=== PATIENT | male | born 1970 | race Caucasian/White ===

== ENCOUNTER → 2023-07-29 23:00 | Outpatient (CLI) | payer BC, SELFPAY | PROVIDERS: PCP Nurse Practitioner Family; Visit Provider Nurse Practitioner Family | DX: I10 Essential (primary) hypertension (principal); F41.9 Anxiety disorder, unspecified; E11.9 Type 2 diabetes mellitus without complications; E78.5 Hyperlipidemia, unspecified | CPT/HCPCS: 80053; 80061; 83036; 84436; 84439; 84443; 84479; 85025 ==

== ENCOUNTER → 2023-08-05 23:35 | Outpatient (CLI) | payer BC, SELFPAY ==
[2023-08-05 17:29] LABS: Creatinine,Urine Random 165 mg/dL (Not Estab.)
[2023-08-05 17:34] LABS: Microalbumin/Creatinine Ratio 30.9
== END ==
PROVIDERS: PCP Nurse Practitioner Family; Visit Provider Nurse Practitioner Family
DX: E11.9 Type 2 diabetes mellitus without complications (principal); Z79.84 Long term (current) use of oral hypoglycemic drugs
CPT/HCPCS: 82043; 82570

== ENCOUNTER 2023-12-09 11:06 | Outpatient (CLI) | payer BC, SELFPAY ==
[2023-12-09 16:39] LABS: Basophils # 0.1 K/mm3 (0-0.2); Basophils % 0.7 % (0.1-2.0); Eosinophils # 0.2 K/mm3 (0.0-0.4); Eosinophils % 1.9 % (0.1-12.0); Hematocrit 51.4 % (42.0-52.0); Hemoglobin 16.6 g/dL (14.1-18.0); Lymphocytes # 2.5 K/mm3 (0.7-4.5); Lymphocytes % 26.4 % (10-50); Mean Corpuscular HGB Conc 32.2 g/dL (31.8-35.4); Mean Corpuscular Hemoglobin 31.8 pg (27.0-31.2); Mean Corpuscular Volume 98.9 fl (80-94); Mean Platelet Volume 9.7 fl (7.4-10.4); Monocytes # 0.5 K/mm3 (0.1-1.0); Monocytes % 5.1 % (1.7-9.3); Neutrophils # 6.2 K/mm3 (1.8-7.8); Neutrophils % 65.9 % (37.0-80.0); Platelet Count 184 K/mm3 (142-424); White Blood Count 9.4 K/mm3 (4.8-10.8)
[2023-12-09 17:04] LABS: Chloride 104 mmol/L (98-107); Sodium 138 mmol/L (136-145)
[2023-12-09 17:05] LABS: Potassium 4.5 mmoL/L (3.5-5.1)
[2023-12-09 17:07] LABS: Alanine Aminotransferase 43 U/L (12-78); Albumin Level 4.3 g/dl (3.5-5.0); Albumin/Globulin Ratio 1.7 (1.1-1.8); Alkaline Phosphatase 72 U/L (38-126); Anion Gap 12.5 mEq/L (5-15); Aspartate Amino Transferase 35 U/L (17-59); Bilirubin,Total 0.5 mg/dl (0.2-1.3); Blood Urea Nitrogen 18 mg/dl (9-20); Carbon Dioxide 26 mmol/L (22.0-30.0); Cholesterol 171 mg/dl (140-200); Estimated Glomerular Filt Rate 142 ml/min (>60); GFR (African American) 172 ML/MIN (>60); Globulin 2.5 g/dL (1.3-3.2); Total Protein,Serum 6.8 g/dl (6.3-8.2); Triglycerides 353 mg/dl (30-150); VLDL Cholesterol 71 mg/dL (0-40)
[2023-12-09 17:08] LABS: Calcium 9.5 mg/dl (8.4-10.2); Chol/HDL Ratio 4.6 (1-3.5); Glucose 185 mg/dl (74-100); HDL Cholesterol 37 mg/dl (40-60)
[2023-12-09 17:19] LABS: Direct LDL Cholesterol 82.91 mg/dL (100-129)
[2023-12-09 17:27] LABS: Hemoglobin A1C 7.2 % (4.0-6.0)
== END 2023-12-09 23:59 | disposition home or self-care (01) ==
LOC: LAB.DROPOF 12-10 11:07
PROVIDERS: PCP Nurse Practitioner Family; Visit Provider Nurse Practitioner Family
DX: E11.9 Type 2 diabetes mellitus without complications (principal); E78.5 Hyperlipidemia, unspecified; Z79.84 Long term (current) use of oral hypoglycemic drugs
CPT/HCPCS: 80053; 80061; 83036; 85025

== ENCOUNTER 2024-04-20 11:30 | Outpatient (CLI) | payer BC, SELFPAY ==
[2024-04-20 18:29] LABS: Basophils # 0.1 K/mm3 (0-0.2); Basophils % 0.8 % (0.1-2.0); Eosinophils # 0.2 K/mm3 (0.0-0.4); Eosinophils % 1.6 % (0.1-12.0); Hematocrit 45.5 % (42.0-52.0); Hemoglobin 16.8 g/dL (14.1-18.0); Lymphocytes # 2.9 K/mm3 (0.7-4.5); Lymphocytes % 23.8 % (10-50); Mean Corpuscular HGB Conc 36.9 g/dL (31.8-35.4); Mean Corpuscular Hemoglobin 36.1 pg (27.0-31.2); Mean Corpuscular Volume 97.7 fl (80-94); Monocytes # 0.7 K/mm3 (0.1-1.0); Monocytes % 5.6 % (1.7-9.3); Neutrophils # 8.4 K/mm3 (1.8-7.8); Neutrophils % 68.2 % (37.0-80.0); Platelet Count 217 K/mm3 (142-424); Red Blood Count 4.66 M/mm3 (4.60-6.20); Red Cell Distribution Width 13.6 % (11.5-17.5); White Blood Count 12.3 K/mm3 (4.8-10.8)
[2024-04-20 19:44] LABS: Alanine Aminotransferase 41 U/L (12-78); Albumin Level 4.3 g/dl (3.5-5.0); Albumin/Globulin Ratio 1.5 (1.1-1.8); Alkaline Phosphatase 63 U/L (38-126); Anion Gap 12.7 mEq/L (5-15); Aspartate Amino Transferase 31 U/L (17-59); Bilirubin,Total 0.7 mg/dl (0.2-1.3); Blood Urea Nitrogen 16 mg/dl (9-20); Calcium 9.6 mg/dl (8.4-10.2); Carbon Dioxide 25 mmol/L (22.0-30.0); Chloride 102 mmol/L (98-107); Chol/HDL Ratio 5.1 (1-3.5); Cholesterol 174 mg/dl (140-200); Estimated Glomerular Filt Rate 118 ml/min (>60); GFR (African American) 143 ML/MIN (>60); Globulin 2.8 g/dL (1.3-3.2); Glucose 126 mg/dl (74-100); HDL Cholesterol 34 mg/dl (40-60); Potassium 4.7 mmoL/L (3.5-5.1); Sodium 135 mmol/L (136-145); Total Protein,Serum 7.1 g/dl (6.3-8.2); Triglycerides 283 mg/dl (30-150); VLDL Cholesterol 57 mg/dL (0-40)
[2024-04-21 01:37] LABS: Hemoglobin A1C 6.3 % (4.0-6.0)
== END 2024-04-20 23:59 | disposition home or self-care (01) ==
LOC: LAB.DROPOF 04-21 12:24
PROVIDERS: PCP Nurse Practitioner Family; Visit Provider Nurse Practitioner Family
DX: I10 Essential (primary) hypertension (principal); E11.9 Type 2 diabetes mellitus without complications; Z79.84 Long term (current) use of oral hypoglycemic drugs; Z79.85 Long-term (current) use of injectable non-insulin antidiabetic drugs; Z72.0 Tobacco use
CPT/HCPCS: 80053; 80061; 83036; 85025

== ENCOUNTER 2025-03-01 13:30 | Outpatient (CLI) | payer BC, SELFPAY ==
[2025-03-01 17:23] LABS: Hematocrit 49.6 % (42.0-52.0); Hemoglobin 16.9 g/dL (14.1-18.0); Immature Granulocytes % 0.5 %; Mean Corpuscular HGB Conc 34.1 g/dL (31.8-35.4); Mean Corpuscular Hemoglobin 30.8 pg (27.0-31.2); Mean Corpuscular Volume 90.3 fl (80-94); Nucleated Red Blood Cells % 0 %; Platelet Count 204 K/mm3 (142-424); Red Blood Count 5.49 M/mm3 (4.60-6.20); Red Cell Distribution Width-SD 41.1 fL; White Blood Count 15.3 K/mm3 (4.8-10.8)
[2025-03-01 18:21] LABS: Alanine Aminotransferase 34 U/L (12-78); Albumin Level 5.1 g/dl (3.5-5.0); Albumin/Globulin Ratio 1.8 (1.1-1.8); Alkaline Phosphatase 69 U/L (38-126); Anion Gap 21.3 mEq/L (5-15); Aspartate Amino Transferase 39 U/L (17-59); Bilirubin,Total 0.6 mg/dl (0.2-1.3); Blood Urea Nitrogen 15 mg/dl (9-20); Calcium 8.7 mg/dl (8.4-10.2); Carbon Dioxide 23 mmol/L (22.0-30.0); Chloride 96 mmol/L (98-107); Cholesterol 164 mg/dl (140-200); Creatinine,Serum 0.70 mg/dl (0.66-1.25); Estimated Glomerular Filt Rate 118 ml/min (>60); GFR (African American) 143 ML/MIN (>60); Globulin 2.9 g/dL (1.3-3.2); Glucose 61 mg/dl (74-100); HDL Cholesterol 34 mg/dl (40-60); Potassium 4.3 mmoL/L (3.5-5.1); Sodium 136 mmol/L (136-145); Total Protein,Serum 8.0 g/dl (6.3-8.2); Triglycerides 241 mg/dl (30-150)
[2025-03-01 18:38] LABS: T4 (Thyroxine) 11.2 ug/dl (5.53-11.0)
[2025-03-01 18:51] LABS: Thyroid Stimulating Hormone 1.43 uIU/mL (0.465-4.68)
[2025-03-01 19:04] LABS: Hepatitis C Ab Qual. W/ RFX NEGATIVE (Negative)
[2025-03-01 19:31] LABS: 25-OH Vitamin D, Total 25.0 ng/mL (30-100)
--- OUTSIDE RECORDS SUMMARY | 2025-03-02 09:55 | XMS_ITS | Encounter Summary ---
Author Organization [facility] Address [address] [place] [address] Care Team Providers Care White Shoe Ragger Name Role Phone Alfredo Eboni MENDEL Primary Care Provider [phone] Lawrence Baker MD Unavailable Unavailable Dave Gongora MD Unavailable [phone] Reason for Visit * Reason Onset Date Comments Other 11/30/2021 Wanting to get s cheduled Encounter Details Date Type Department Care Team (Late st Contact Info) Description 11/30/2021 Telephone [facility] [address] [place] [address], [address] [place] [address] Evans Gamino MD [address] [place] [address] [address] [place] [address] Other (Wanting to get scheduled) Social History Tobacco Use Types Packs/Day Years Used Date Smoking Tobacco: Every Day Cigarettes 1.5 25 Smokeless Tobacco: Current Comments: I'm trying to cut back. Alcohol Use Standard Drinks/Week Comments Not Currently 0 (1 standard drink = 0.6 oz pur e alcohol) Sex and Gender Information Value Date Recorded Sex Assigned at Male 12/24/2021 9:28 PM EDT Legal Sex Male 11:59 AM EDT Gender Identity Male 12/24/2021 9:28 PM EDT Sexual Orientation Straight 12/24/2021 9: 28 PM EDT COVID-19 Exposure Response Date Recorded In the last month, have you been in contact with someone who was confirmed or suspected to have Coronavirus / COVID-19? No / Unsure 11/03/2021 10:23 AM EST documented as of this encounter Miscellaneous Notes * Telephone Encounter - Bob Caceres - 11/30/2021 4:13 PM EDT PT's called in wanting to the PT scheduled back with Evans Gamino. Would like a call back to schedule as soon as possible. documented in this encounter Plan of Treatment Not on file documented as of this encounter Visit Diagnoses Not on filedocumented in this encounter Additional Health Concerns Infection Onset Date Last Indicated Resolved Time Covid-19 (rule out) 12/30/2021 12/30/2021 01/01/20 5:52 AM EDT Assessment Noted Time PHQ-9 Depression Total Score: 15 020 6:45 PM EDT documented as of this encounter Care Teams White Shoe Ragger Relationship Specialty Start Date End Date Eboni Fuentes PA-C [address] [place] [address] PCP - General Physician Medical Massage Therapist 07/19/20 Lawrence Baker MD [address] [place] [address] Pulmonary Disease 12/25/21 04/22/22 Dave Gongora MD [address] [address] Surgery 12/25/21 documented as of this encounter
--- OUTSIDE RECORDS SUMMARY | 2025-03-02 09:55 | XMS_ITS | Clinical Summary ---
Author Organization [facility] Address [address] [place] [address] Care Team Providers Care Interpreter Translator Name Role Phone Eboni Fuentes PA-C Primary Care Provider [phone] Dave Gongora MD Unavailable [phone] Allergies No known active allergies Medications BUPRENORPHINE HCL/NALOXONE HCL (SUBOXONE SL) Take 16 mg sublingually Once Daily. USUAL DOSE 8 MG, INCREASED TO 16 FOR SURGERY Active flaxseed oil Oil Daily. Act mirta Lancets MiscIndications:Ty pe 2 diabetes mellitus with hyperglycemia, without long-term current use of insulin (HCC) 1 Device Three times a day. 100 Each 3 07/25/20 20 Active testosterone cypionate 200 mg/mL Kit Administer 100 mg intramuscularly. Every 2 weeks Active diclofenac sodium (VOLTAREN) 1 % topical gelIndications:Mus sada spasm,Thoracic myofascial strain, initial encounter 2 g by Topical route Four times a day. 1 Each 1 10/29/19 22 Active ergocalciferol (VITAMIN D2) 50,000 unit CAPSULEIndications :Vitamin D deficiency Take 1 Capsule by mouth Every week. 4 Capsule 3 11/07/19 22 Active polyethylene glycol 3350 (MIRALAX) 17 gram packetIndications: Constipation Take 17 g by mouth Once Daily. Dispense 1 bottle 1 g 05/24/20 22 Active rosuvastatin (CRESTOR) 10 mg tabletIndications: Other hyperlipidemia Take 1 Tablet by mouth At bedtime. 30 Tablet 5 12/01/19 23 Active lisinopriL-hydroch lorothiazide (ZESTORETIC) 20-12.5 mg per tabletIndications: Essential hypertension Take 1 Tablet by mouth Once Daily. 30 Tablet 12/01/19 23 Active pioglitazone (ACTOS) 30 mg tabletIndications: Diabetes mellitus without complication (HCC) Take 1 Tablet by mouth Once Daily. 30 Tablet 12/01/19 23 Active famotidine (PEPCID) 20 mg tabletIndications: Gastroesophageal reflux disease without esophagitis Take 1 Tablet by mouth Once Daily. 30 Tablet 12/01/19 23 Active ibuprofen (MOTRIN) 800 mg tabletIndications: Acute pain of left shoulder Take 1 Tablet by mouth EVERY 6 TO 8 HOURS PRN for Pain. 90 Tablet 12/01/19 23 Active sildenafiL (VIAGRA) 100 mg tabletIndications: Drug-induced erectile dysfunction Take 1 Tablet by mouth As directed. 15 Tablet 12/01/19 23 Active omeprazole (PRILOSEC) [address] capsuleIndications :Gastroesophageal reflux disease without esophagitis TAKE 1 CAPSULE BY MOUTH EVERY DAY 90 Capsule 01/08/20 23 Active lamoTRIgine (LAMICTAL) 100 mgIndications:Irri tability,Anxiety Take 1 Tablet by mouth Twice a day. 30 Tablet 03/18/20 23 Active ondansetron HCL (ZOFRAN) 4 mg tabletIndications: Nausea TAKE 1 TABLET BY MOUTH THREE TIMES DAILY NEEDED FOR NAUSEA 90 Tablet 12/10/19 24 Active Active Problems Problem Noted Date Diagnosed Date Adrenal abnormality/ LT adrenal nodularity . 09/2021 Abdominal pain, generalized 12/18/2021 Incarcerated incisional hernia 12/18/2021 Uncontrolled type 2 diabetes mellitus with hyper glycemia 09/26/2020 Essential hypertension 09/26/2020 Mixed hyperlipidemia 09/26/2020 Epidermoid cyst 07/22/2019 Overview (07/22/2019): Added automatically from request for surgery [id number] Encounters Date Type Department Care Team Description 02/11/2025 Telephone Patient Access Center [address] [place] [address] Eboni Fuentes PA-C Preventative Care (COLOGUARD) from Last 3 Months Family History Medical History Relation Name Comments Cancer Father Emphysema Father Arthritis-Osteo Mother Kidney Disease Mother Relation Name Status Comments Father Mother Alive Social History Tobacco Use Types Packs/Day Years Used Date Smoking Tobacco: Every Day Cigarettes 1 25 Smokeless Tobacco: Current Tobacco Cessation:Ready to Q uit: No; Counseling Given: Not Answered Comments:12/25/21 smokes 1 ppd Alcohol Use Standard Drinks/Week Comments Not Currently 0 (1 standard drink = 0.6 oz pur e alcohol) PHQ-2 Answer Date Recorded PHQ-2 SCORE 0 11/30/2022 Sex and Gender Information Value Date Recorded Sex Assigned at Male 12/24/2021 9:28 PM EDT Legal Sex Male 11:59 AM EDT Gender Identity Male 12/24/2021 9:28 PM EDT Sexual Orientation Straight 12/24/2021 9: 28 PM EDT Last Filed Vital Signs Vital Sign Reading Time Taken Comments Blood Pressure 152/84 11/30/2022 9:26 AM EDT Pulse 99 11/30/2022 9:26 AM EDT Temperature 36.6 C (97.9 F) 11/30/2022 9:26 AM EDT Respiratory Rate 16 11/30/2022 9:26 AM EDT Oxygen Saturation 98% 11/30/2022 9:26 AM EDT Inhaled Oxygen Concentration - - Weight 118.8 kg (262 lb) 11/30/2022 9:26 AM EDT Height 177.8 cm (5' 10 ) 11/30/2022 9:26 AM EDT Body Mass Index 37.59 11/30/2022 9:26 AM EDT Plan of Treatment Health Maintenance Due Date Last Done Comments COLONOSCOPY 1972 FIT 1972 HEP C SCREENING 1972 SIGMOIDOSCOPY 1972 DTAP/TDAP/TD VACCINE (1 - Tdap) 12/31/1990 ANNUAL DIABETIC EYE EXAM 09/21/2021 021 (Previously completed) Shingles Vaccine (Shingrix) (1 of 2) 12/31/2021 ANNUAL DIABETIC URINE MICROALBUMIN 11/01/2022 11/01/2021 ANNUAL WELLNESS EXAM 12/02/2023 11/30/2022, 11/30/2022, 07/12/2020, Additional history exists COLOGUARD 11/10/2024 11/10/2021 Colorectal Screening Combination 11/10/2024 INFLUENZA VACCINE (#1) 2025 04/08/2014 HEP A VACCINE Aged Out 08/30/2010, 06/27, 05/16/2009 No longer eligible based on patient's age to complete this topic HIB VACCINE Aged Out No longer eligi ble based on patient's age to complete this topic ROTOVIRUS VACCINE Aged Out No longer eligible based on patient's age to complete this topic Medical Devices Implanted Type Area Cook Night Device Identifier Shelf Expiration Date Model / Serial / Lot Mesh Ventralight W/Positioner 4.5 [place] Implanted:Qty: 1 on 01/02/2022 by Dave Gongora MD at [facility] N/A: Abdomen BARD PATIENT CARE 07/23/2023 [id number] / / [id number] Optifix Absorbable Fixation Sy Implanted:Qty: 1 on 01/02/2022 by Dave Gongora MD at [facility] N/A: Abdomen C R BARD 06/22/2023 [id number] / / [id number] Procedures Procedure Name Priority Date/Time Associated Diagnosis Comments COLOGUARD Routine 11/10/2021 4:35 PM EDT Screening for colorectal cancer MICROALBUMIN,RANDOM URINE (INCLUDES CREATININE W/RATIO) Routine 11/01/2021 11:35 AM EST Type 2 diab w hyprosm w/o nonket hyprgly-hypros coma ([facility]) from Last 3 Months or Most Recently Relevant to Health Maintenance Results * Cologuard (11/10/2021 4:35 PM EDT) Cologuard Negative Negative 11/15/2021 5:43 PM EDT [employer] (CLIA #:[id number]) Comment: NEGATIVE TEST RESULT. A negative Cologuard result indicates a low likelihood that a colorectal cancer (CRC) or advanced adenoma (adenomatous polyps with more advanced pre-malignant features) is present. The chance that a person with a negative Cologuard test has a colorectal cancer is less than 1 in 1500 (negative predictive value >99.9%) or has an advanced adenoma is less than 5.3% (negative predictive value 94.7%). These data are based on a prospective cross-sectional study of 10,000 individuals at average risk for colorectal cancer who were screened with both Cologuard and colonoscopy. (Maria Elena Cespedes al, N Engl J Med 2014;370(14):4369-3433) The normal value (reference range) for this assay is negative. COLOGUARD RE-SCREENING RECOMMENDATION: Periodic colorectal cancer screening is an important part of preventive healthcare for asymptomatic individuals at average risk for colorectal cancer. Following a negative Cologuard result, the [place] [employer] Society and U.S. Multi-Society Task Force screening guidelines recommend a Cologuard re-screening interval of 3 years. References: [place] [employer] Guideline for Colorectal Cancer Screening: https://www.cancer.org/cancer/wxria-azynis-spcxav/quqcwffuc-baiqipofv-luvjdij/ac s-rec ommendations.html.; Zechariah DK, Alexandra WEST, Pablo PickensK, Colorectal Cancer Screening: Recommendations for Physicians and Patients from the U.S. Multi-Society Task Force on Colorectal Cancer Screening , Am J Gastroenterology 2017; 112:2203-4123. TEST DESCRIPTION: Composite algorithmic analysis of stool DNA-biomarkers with hemoglobin immunoassay. Quantitative values of individual biomarkers are not reportable and are not associated with individual biomarker result reference ranges. Cologuard is intended for colorectal cancer screening of adults of either sex, 45 years or older, who are at average-risk for colorectal cancer (CRC). Cologuard has been approved for use by the U.S. FDA. The performance of Cologuard was established in a cross sectional study of average-risk adults aged 50-84. Cologuard performance in patients ages 45 to 49 years was estimated by sub-group analysis of near-age groups. Colonoscopies performed for a positive result may find as the most clinically significant lesion: colorectal cancer [4.0%], advanced adenoma (including sessile serrated polyps greater than or equal to 1cm diameter) [20%] or non- advanced adenoma [31%]; or no colorectal neoplasia [45%]. These estimates are derived from a prospective cross-sectional screening study of 10,000 individuals at average risk for colorectal cancer who were screened with both Cologuard and colonoscopy. (Maria Elena Grimes, N Engl J Med 2014;370(14):1429-7213.) Cologuard may produce a false negative or false positive result (no colorectal cancer or precancerous polyp present at colonoscopy follow up). A negative Cologuard test result does not guarantee the absence of CRC or advanced adenoma (pre-cancer). The current Cologuard screening interval is every 3 years. ([place] [employer] Society and U.S. Multi-Society Task Force). Cologuard performance data in a 10,000 patient pivotal study using colonoscopy as the reference method can be accessed at the following location: www.[employer]/results. Additional description of the Cologuard test process, warnings and precautions can be found at www.cologuard.com. Stool 11/10/2021 4:35 PM EDT 11/13/2021 2:16 PM EDT Elsa Martinez APRN LAB SEND OUT ORDERABLES Final Re sult Performing Organization Address [facility] Co de Phone Number [employer] (CLIA #:[id number]) [address] [phone] * Microalbumin, Random Urine (11/01/2021 11:35 AM EST) CREATININE URINE 100.0 mg/dL 11/02/19 4:12 PM EST [facility] MICROALBUMIN,U,RANDO M 1.40 0.00 - 1.80 mg/dL 11/01/2021 4:12 PM EST [facility] MICROALB CREAT RATIO 14.0 ug/mg 04/2022 4:12 PM EST [facility] Comment: CATEGORY SPOT COLLECTION Normal <30 ug/mg creatinine Microalbuminuria 30-300 ug/mg creatinine Clinical albuminuria >300 ug/mg creatinine 11/01/2021 11:3 5 AM EST 11/01/2021 3:44 PM EST Narrative [facility] - 11/01/2021 4:12 PM EST NO KNOWN ALLERGIES Elsa Martinez APRN CHEMISTRY ORDERABLES Final Resul t Performing Organization Address [facility] Co de Phone Number [facility] [address] [place], [place] [address] [place] [address] LAB [address] [facility] [place] [address] from Last 3 Months or Most Recently Relevant to Health Maintenance Insurance [facility] [place] [id number] [facility] Advance Directives * Full Code (Latest Code Status on File) Date Activated Date Inactivated Comments 01/02/2022 7:33 AM 01/02/2022 3:14 PM Care Teams Interpreter Translator Relationship Specialty Start Date End Date Eboni Fuentes PA-C [address] [place] [address] PCP - General Physician Certified Pesticide Applicator 07/19/20 Dave Gongora MD [address] [place] [address] Surgery 12/25/21
--- OUTSIDE RECORDS SUMMARY | 2025-03-02 09:55 | XMS_ITS | Encounter Summary ---
Author Organization [facility] Address [address] [place] [address] Care Team Providers Care Fish Hatchery Worker Name Role Phone Amelie Torres DO, Clarence Franklin Primary Care Pr ovider Eboni Fuentes PA-C Primary Care Provider [phone] Lawrence Baker MD Unavailable Unavailable Dave Gongora MD Unavailable [phone] Reason for Visit * Reason Onset Date Comments Results - Test 06/12/2019 Encounter Details Date Type Department Care Team (Late st Contact Info) Description 06/12/2019 Telephone Patient Access Center [address] [place] [address] Doctor, [place], [place] Results - Test Social History Tobacco Use Types Packs/Day Years Used Date Smoking Tobacco: Every Day Smokeless Tobacco: Former Sex and Gender Information Value Date Recorded Sex Assigned at Male 12/24/2021 9:28 PM EDT Legal Sex Male 11:59 AM EDT Gender Identity Male 12/24/2021 9:28 PM EDT Sexual Orientation Straight 12/24/2021 9: 28 PM EDT documented as of this encounter Miscellaneous Notes * Telephone Encounter - Rosemarie Vance - 06/12/2019 3:11 PM EDT Nilesh Mack, phoned in requesting test result(s). 06/11/2019 result(s) shared with patient. Recommendations and education provided related to test result(s), he voiced understanding. No additionalquestions or concerns at this time. * Telephone Encounter - Rosemarie Vance - 06/12/2019 3:10 PM EDT ----- Message from Danikaeduar Kimjuliana sent at 06/12/2019 2:49 PM EDT ----- Regarding: Lab results Lab results documented in this encounter Plan of Treatment Not on file documented as of this encounter Visit Diagnoses Not on filedocumented in this encounter Additional Health Concerns Infection Onset Date Last Indicated Resolved Time Covid-19 (rule out) 06/16/2021 06/16/2021 06/16/20 21 4:31 PM EDT Covid-19 (rule out) 08/14/2021 12/30/2021 08/28/19 22 10:12 PM EST Covid-19 (rule out) 12/30/2021 12/30/2021 01/01/20 5:52 AM EDT documented as of this encounter Care Teams Fish Hatchery Worker Relationship Specialty Start Date End Date Hector Kinsey Jr., DO [address] [place] [address] PCP - General Family Medicine 09/21/19 07/18/20 Eboni Fuentes PA-C [address] [place] [address] PCP - General Physician Chemists 07/19/20 Lawrence Baker MD [address] [place] [address] Pulmonary Disease 12/25/21 04/22/22 Dave Gongora MD [address] [address] Surgery 12/25/21 documented as of this encounter
--- OUTSIDE RECORDS SUMMARY | 2025-03-02 09:55 | XMS_ITS | Encounter Summary ---
Author Organization [facility] Address [address] [place] [address] Care Team Providers Care Shank Cutter Name Role Phone Eboni Fuentes PA-C Primary Care Provider [phone] Lawrence Baker MD Unavailable Unavailable Dave Gongora MD Unavailable [phone] Reason for Visit * Reason Onset Date Comments Other 01/25/2021 Encounter Details Date Type Department Care Team (Late st Contact Info) Description 01/25/2021 Telephone [facility] [address] [place] [address] Eboni Fuentes PA-C [address] [place] [address] Other Social History Tobacco Use Types Packs/Day Years Used Date Smoking Tobacco: Every Day Cigarettes 1.5 25 Smokeless Tobacco: Former Comments: I'm trying to cut back. Alcohol [...] encounter Miscellaneous Notes * Telephone Encounter - Flaco Barros - 01/25/2021 1:00 PM EDT Occupational Medicine called to check on the status of the patient's DOT paperwork. I informed her that it has been faxed and that Eboni is out. She still wanted me to put in a message to have it faxed back over. documented in this encounter Plan of Treatment Not on file documented as of this encounter Visit Diagnoses Not on filedocumented in this encounter Additional Health Concerns Infection Onset Date Last Indicated Resolved Time Covid-19 (rule out) 06/16/2021 06/16/2021 06/16/20 21 4:31 PM EDT Covid-19 (rule out) 08/14/2021 12/30/2021 08/28/19 22 10:12 PM EST Covid-19 (rule out) 12/30/2021 12/30/2021 01/01/20 22 5:52 AM EDT Assessment Noted Time PHQ-9 Depression Total Score: 15 020 6:45 PM EDT documented as of this encounter Care Teams Shank Cutter Relationship Specialty Start Date End Date Eboni Fuentes PA-C [address] [place] [address] PCP - General Physician Scholarship Counselor 07/19/20 Lawrence Baker MD [address] [place] [address] Pulmonary Disease 12/25/21 04/22/22 Dave Gongora MD [address] [place] [address] Surgery 12/25/21 documented as of this encounter
--- OUTSIDE RECORDS SUMMARY | 2025-03-02 09:55 | XMS_ITS | Encounter Summary ---
Author Organization [facility] Address [address] [place] [address] Care Team Providers Care Biomedical Repair Technician Name Role Phone EnidEboni alfaro MENDEL Primary Care Provider [phone] Lawrence Baker MD Unavailable Unavailable Dave Gongora MD Unavailable [phone] Encounter Details Date Type Department Care Team (Late st Contact Info) Description 09/28/2020 Refill [facility] [address] [place] [phone] Ginger Curtis MD [address] [place] [address] Diabetes mellitus without complication (Primary Dx) Social History Tobacco Use Types Packs/Day Years Used Date Smoking Tobacco: Every Day Cigarettes 1.5 25 Smokeless Tobacco: Former Alcohol Use Standard Drinks/Week Comments Not Currently [...] have Coronavirus / COVID-19? No / Unsure 09/26/2020 2:25 PM EST documented as of this encounter Miscellaneous Notes * Telephone Encounter - Dana Mars MA - 09/28/2020 11:16 AM EST Images from the original note were not included. Ginger Curtis MD James, [place], [place] Caller: Unspecified (Today, ??9:42 AM) ?? Will d/c Metformin. Start Actos 30 mg daily. May send in prescriptions. Called pt, no answer, left above message. * Telephone Encounter - Dana Mars MA - 09/28/2020 9:42 AM EST Patient calls and states he seen dr Curtis on Saturday. He states he was started on Metformin 500 mg bid. It is causing severe diarrhea with stomach cramps. He has no drug allergies. 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 Please advise [phone]. Call in to [facility]. documented in this encounter Plan of Treatment Not on file documented as of this encounter Visit Diagnoses Diagnosis Diabetes mellitus without complication (HCC)- Primary Type II or unspecified type diabetes mellitus without mention of complication, not stated as uncontrolled documented in this encounter Additional Health Concerns Infection Onset Date Last Indicated Resolved Time Covid-19 (rule out) 06/16/2021 06/16/2021 06/16/20 21 4:31 PM EDT Covid-19 (rule out) 08/14/2021 12/30/2021 08/28/19 22 10:12 PM EST Covid-19 (rule out) 12/30/2021 12/30/2021 01/01/20 22 5:52 AM EDT Assessment Noted Time PHQ-9 Depression Total Score: 15 020 6:45 PM EDT documented as of this encounter Care Teams Biomedical Repair Technician Relationship Specialty Start Date End Date Eboni Fuentes PA-C [address] [place] [address] PCP - General Physician Customs Officer 07/19/20 Lawrence Baker MD [address] [place] [address] Pulmonary Disease 12/25/21 04/22/22 Dave Gongora MD [address], [place] [address] Surgery 12/25/21 documented as of this encounter
--- OUTSIDE RECORDS SUMMARY | 2025-03-02 09:55 | XMS_ITS | Encounter Summary ---
Author Organization [facility] Address [address] [place] [address] Care Team Providers Care Plaster Machine Operator Name Role Phone Eboni Fuentes PA-C Primary Care Provider [phone] Dave Gongora MD Unavailable [phone] Reason for Visit * Reason Onset Date Comments Other 05/25/2022 information Encounter Details Date Type Department Care Team (Late st Contact Info) Description 05/25/2022 Telephone [facility] [address] [facility] [place] [address] Eboni Fuentes PA-C [address] [place] [address] Other (information) Social History Tobacco Use Types Packs/Day Years Used Date Smoking Tobacco: Every Day Cigarettes 1 25 Smokeless Tobacco: Current Comments:12/25/21 smokes 1 ppd Alcohol Use Standard [...] Exposure Response Date Recorded In the last 10 days, have yo u been in contact with someone who was confirmed or suspected to have Coronavirus/COVID-19? 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 The was the first day he didn't work. Please give call back to discuss. Thank you. documented in this encounter Plan of Treatment Not on file documented as of this encounter Visit Diagnoses Not on filedocumented in this encounter Additional Health Concerns Assessment Noted Time PHQ-9 Depression Total Score: 15 020 6:45 PM EDT documented as of this encounter Care Teams Plaster Machine Operator Relationship Specialty Start Date End Date Eboni Fuentes PA-C [address] [place] [address] PCP - General Physician Blow Down Operator 07/19/20 Dave Gongora MD [address] [place] [address] Surgery 12/25/21 documented as of this encounter
--- OUTSIDE RECORDS SUMMARY | 2025-03-02 09:55 | XMS_ITS | Encounter Summary ---
Author Organization [facility] Address [address] [id number] Care Team Providers Care Band Lining Bander Name Role Phone Amelie Torres DO, Clarence Franklin Primary Care Pr ovider Eboni Fuentes PA-C Primary Care Provider [phone] Lawrence Baker MD Unavailable Unavailable Dave Gongora MD Unavailable [phone] Reason for Visit * Reason Onset Date Comments Results 06/16/2020 Covid Encounter Details Date Type Department Care Team (Late st Contact Info) Description 06/16/2020 Telephone Patient Access Center [address] [place] [address] Harjit Rivera RN Results (Covid) Social History Tobacco Use Types Packs/Day Years [...] have Coronavirus / COVID-19? No / Unsure 06/13/2020 12:21 PM EDT documented as of this encounter Miscellaneous Notes * Telephone Encounter - Harjit Rivera RN - 06/16/2020 2:11 PM EDT Patient notified of negative COVID 19 results. Patient voiced understanding. documented in this encounter Plan of Treatment [...] documented as of this encounter Care Teams Band Lining Bander Relationship Specialty Start Date End Date Hector Kinsey Jr., DO [address] [place] [address] PCP - General Family Medicine 09/21/19 07/18/20 Eboni Fuentes PA-C [address] [place] [address] PCP - General Physician Project Specialist 07/19/20 Lawrence Baker MD [address] [place] [address] Pulmonary Disease 12/25/21 04/22/22 Dave Gongora MD [address] [address] Surgery 12/25/21 documented as of this encounter
--- OUTSIDE RECORDS SUMMARY | 2025-03-02 09:55 | XMS_ITS | Encounter Summary ---
Author Organization [facility] Address [address] [place] [address] Care Team Providers Care Study Abroad Coordinator Name Role Phone Enidangelina Eboni MENDEL Primary Care Provider [phone] Lawrence Baker MD Unavailable Unavailable Dave Gongora MD Unavailable [phone] Encounter Details Date Type Department Care Team (Late st Contact Info) Description 05/06/2021 Orders Only [facility] [address] [place] [address] Sara Hearn, ASSISTANT PROFESSOR OF DRAMA [address] [place] [address] Cough with exposure to COVID-19 virus (Primary Dx) Social History Tobacco Use Types [...] have Coronavirus / COVID-19? No / Unsure 04/14/2021 11:47 AM EDT documented as of this encounter Plan of Treatment Not on file documented as of this encounter Visit Diagnoses Diagnosis Cough with exposure to COVID-19 virus- Primary documented in this encounter Additional Health Concerns Infection Onset Date Last Indicated Resolved Time Covid-19 (rule out) 06/16/2021 06/16/2021 06/16/20 4:31 PM EDT Covid-19 (rule out) 08/14/2021 12/30/2021 08/28/19 22 10:12 PM EST Covid-19 (rule out) 12/30/2021 12/30/2021 01/01/20 5:52 AM EDT Assessment Noted Time PHQ-9 Depression Total Score: 15 020 6:45 PM EDT documented as of this encounter Care Teams Study Abroad Coordinator Relationship Specialty Start Date End Date Eboni Fuentes PA-C [address] [place] [address] PCP - General Physician Plant Machinist 07/19/20 Lawrence Baker MD [address] [place] [address] Pulmonary Disease 12/25/21 04/22/22 Dave Gongora MD [address] [address] Surgery 12/25/21 documented as of this encounter
--- OUTSIDE RECORDS SUMMARY | 2025-03-02 09:55 | XMS_ITS | Encounter Summary ---
Author Organization [facility] Address [address] [place] [address] Care Team Providers Care Substance Abuse Specialist Name Role Phone Enidangelina Eboni MENDEL Primary Care Provider [phone] Lawrence Baker MD Unavailable Unavailable Dave Gongora MD Unavailable [phone] Encounter Details Date Type Department Care Team (Late st Contact Info) Description 05/06/2021 Orders Only [facility] [address] [place] [address] Sara Hearn, PERSONAL INJURY ATTORNEY [address] [place] [address] Cough with exposure to COVID-19 virus (Primary [...] as of this encounter Plan of Treatment Scheduled Orders Name Type Priority Associated Diagnoses Orde r Schedule SARS-CoV-2, QL, PCR (Routine/Outpatie nt) Microbiology Routine Cough with exposure to COVID-19 virus 1 Occurrences starting 05/06/2021 until 05/06/2022 documented as of this encounter Visit Diagnoses Diagnosis Cough with exposure to COVID-19 virus- Primary documented in this encounter Additional Health Concerns Infection Onset Date Last Indicated Resolved Time Covid-19 (rule out) 06/16/2021 06/16/2021 06/16/20 21 4:31 PM EDT Covid-19 (rule out) 08/14/2021 12/30/2021 08/28/19 10:12 PM EST Covid-19 (rule out) 12/30/2021 12/30/2021 01/01/20 5:52 AM EDT Assessment Noted Time PHQ-9 Depression Total Score: 15 020 6:45 PM EDT documented as of this encounter Care Teams Substance Abuse Specialist Relationship Specialty Start Date End Date Eboni Fuentes PA-C [address] [place] [address] PCP - General Physician Surgical Services Manager 07/19/20 Lawrence Baker MD [address] [place] [address] Pulmonary Disease 12/25/21 04/22/22 Dave Gongora MD [address] [address] Surgery 12/25/21 documented as of this encounter
--- OUTSIDE RECORDS SUMMARY | 2025-03-02 09:55 | XMS_ITS | Encounter Summary ---
Author Organization [facility] Address [address] [place] [address] Care Team Providers Care Tube Mill Operator Name Role Phone Eboni Fuentes PA-C Primary Care Provider [phone] Lawrence Baker MD Unavailable Unavailable Dave Gongora MD Unavailable [phone] Encounter Details Date Type Department Care Team (Late st Contact Info) Description 01/24/2021 Telephone [facility] [address] [address] Eboni Fuentes PA-C [address] [place] [address] Social History Tobacco Use Types Packs/Day Years [...] encounter Miscellaneous Notes * Telephone Encounter - Jontahon Pascual - 01/24/2021 2:13 PM EDT Patient's called and stated [facility] will be faxing a form for DOT physical. She asked if it can be filled out and faxed back [phone] attjuliana Anderson. She stated it is very urgent and thank you documented in this encounter Plan of Treatment [...] documented as of this encounter Care Teams Tube Mill Operator Relationship Specialty Start Date End Date Eboni Fuentes PA-C [address] [place] [address] PCP - General Physician Fire Alarm Dispatcher 07/19/20 Lawrence Baker MD [address] [place] [address] Pulmonary Disease 12/25/21 04/22/22 Dave Gongora MD [address] [address] Surgery 12/25/21 documented as of this encounter
--- OUTSIDE RECORDS SUMMARY | 2025-03-02 09:55 | XMS_ITS | Encounter Summary ---
Author Organization [facility] Address [address] [place] [address] Care Team Providers Care Patrol Mother Name Role Phone Amelie Torres DO, Clarence Franklin Primary Care Pr ovider Eboni Fuentes PA-C Primary Care Provider [phone] Lawrence Baker MD Unavailable Unavailable Dave Gongora MD Unavailable [phone] Reason for Visit * Reason Onset Date Comments Medications Refill 06/09/2020 Encounter Details Date Type Department Care Team (Late st Contact Info) Description 06/09/2020 Refill [facility] [address] [place] [address] Eboni Fuentes PA-C [address] [place] [address] Social History Tobacco Use Types [...] PM EDT documented as of this encounter Plan [...] documented as of this encounter Care Teams Patrol Mother Relationship Specialty Start Date End Date Hector Kinsey Jr., [address] [place] [address] PCP - General Family Medicine 09/21/19 07/18/20 Eboni Fuentes PA-C [address] [place] [address] PCP - General Physician Financial Project Manager 07/19/20 Lawrence Baker MD [address] [place] [address] Pulmonary Disease 12/25/21 04/22/22 Dave Gongora MD [address] [address] Surgery 12/25/21 documented as of this encounter
--- OUTSIDE RECORDS SUMMARY | 2025-03-02 09:55 | XMS_ITS | Encounter Summary ---
Author Organization [facility] Address [address] [place] [address] Care Team Providers Care Electronic Operator Name Role Phone Eboni Fuentes PA-C Primary Care Provider [phone] Lawrence Baker MD Unavailable Unavailable Dave Gongora MD Unavailable [phone] Encounter Details Date Type Department Care Team (Late st Contact Info) Description 07/27/2020 Telephone [facility] [address] [place] [address] Eboni Fuentes PA-C [address] [place] [address] Social History Tobacco Use Types [...] have Coronavirus / COVID-19? No / Unsure 07/26/2020 10:45 AM EST documented as of this encounter Miscellaneous Notes * Telephone Encounter - Neda Vila - 07/27/2020 1:16 PM EST Patients called wanting to know if you can order an Echo of patient's heart to see 'how clogged his arteries are'. You can call back [phone] or [phone]. documented in this encounter Plan of Treatment [...] documented as of this encounter Care Teams Electronic Operator Relationship Specialty Start Date End Date Eboni Fuentes PA-C [address] [place] [address] PCP - General Physician Stage Electrician Helper 07/19/20 Lawrence Baker MD [address] [place] [address] Pulmonary Disease 12/25/21 04/22/22 Dave Gongora MD [address] [place] [address] Surgery 12/25/21 documented as of this encounter
--- OUTSIDE RECORDS SUMMARY | 2025-03-02 09:55 | XMS_ITS | Encounter Summary ---
Author Organization [facility] Address [address] [place] [address] Care Team Providers Care Dairy Husbandry Teacher Name Role Phone Eboni Fuentes PA-C Primary Care Provider [phone] Dave Gongora MD Unavailable [phone] Reason for Visit * Reason Onset Date Comments Other 05/10/2023 pioglitazone (AC TOS) 30 mg tablet Encounter Details Date Type Department Care Team (Late st Contact Info) Description 05/10/2023 Telephone [place] [place] [address] Eboni Fuentes PA-C [address] [place] [address] Other (pioglitazone (ACTOS) 30 mg tablet) Social History Tobacco Use Types Packs/Day Years [...] encounter Miscellaneous Notes * Telephone Encounter - Meena Ang - 05/13/2023 10:25 AM EDT Nilesh Mack (Lemons: [id number]) - [id number] Pioglitazone HCl 30MG tablets Status: PA Response - Approved Created: April 26, 2023 Sent: May 13, 2023 * Telephone Encounter - Leia Hayward - 05/10/2023 11:54 AM EDT Patient needs PA on pioglitazone (ACTOS) 30 mg tablet Patient has [employer] . Patient recently started a new job with new [email or web address] insurance. The insurance is updated and verified in his chart. documented in this encounter Plan of Treatment Not on file documented as of this encounter Visit Diagnoses Not on filedocumented in this encounter Additional Health Concerns Assessment Noted Time PHQ-9 Depression Total Score: 15 020 6:45 PM EDT documented as of this encounter Care Teams Dairy Husbandry Teacher Relationship Specialty Start Date End Date Eboni Fuentes PA-C [address] [place] [address] PCP - General Physician Cane Piler 07/19/20 Dave Gongora MD [address] [place] [address] Surgery 12/25/21 documented as of this encounter
--- OUTSIDE RECORDS SUMMARY | 2025-03-02 09:55 | XMS_ITS | Encounter Summary ---
Author Organization [facility] Address [address] [id number] Care Team Providers Care Silver Holloware Assembler Name Role Phone Enidangelina Eboni MENDEL Primary Care Provider [phone] Lawrence Baker MD Unavailable Unavailable Dave Gongora MD Unavailable [phone] Reason for Visit * Reason Onset Date Comments Medication - Prior Authorization 02/10/2021 Encounter Details Date Type Department Care Team (Late st Contact Info) Description 02/10/2021 Telephone [facility] [address] [place], [place] [address] Kenny Mixon MD [address] [place] [address] Medication - Prior Authorization Social History Tobacco Use Types Packs/Day Years [...] have Coronavirus / COVID-19? No / Unsure 02/10/2021 10:18 AM EDT documented as of this encounter Miscellaneous Notes * Telephone Encounter - Gretchen Morataya - 02/13/2021 11:52 AM EDT PA approved. Tried to contact pt, no answer. Left message with pharmacy that PA was approved * Telephone Encounter - Gretchen Morataya - 02/13/2021 8:51 AM EDT PA Sent * Telephone Encounter - Dolores Rollins - 02/10/2021 1:07 PM EDT Oral pt Per pts , Rx for Testosterone needing PA documented in this encounter Plan of Treatment [...] documented as of this encounter Care Teams Silver Holloware Assembler Relationship Specialty Start Date End Date Eboni Fuentes PA-C [address] [employer] [place] [address] PCP - General Physician Rat Poisoner 07/19/20 Lawrence Baker MD [address] [employer] [place] [address] Pulmonary Disease 12/25/21 04/22/22 Dave Gongora MD [address] [address] Surgery 12/25/21 documented as of this encounter
--- OUTSIDE RECORDS SUMMARY | 2025-03-02 09:55 | XMS_ITS | Encounter Summary ---
Author Organization [facility] Address [address] [place] [address] Care Team Providers Care Aerial Gunner Name Role Phone EnidEboni alfaro MENDEL Primary Care Provider [phone] Lawrence Baker MD Unavailable Unavailable Dave Gongora MD Unavailable [phone] Reason for Visit * Reason Onset Date Comments Request Referral 10/21/2020 Oral Encounter Details Date Type Department Care Team (Late st Contact Info) Description 10/21/2020 Telephone [facility] [address] [place] [address] Ginger Curtis MD [address] [place] [address] Request Referral (Oral) Social History Tobacco Use Types Packs/Day Years [...] Miscellaneous Notes * Telephone Encounter - Rosemarie Be - 10/21/2020 3:13 PM EST Patient's called and states that Dr Curtis was suppose to refer to patient to Urology for low testosterone. Patient would like to referred to Dr Mixon. * Telephone Encounter - Kellee Salter - 10/21/2020 2:31 PM EST Patient states he has low testosterone and frequently feels weak and fatigued. He is requesting referral to Oral for testosterone shots. Please advise documented in this encounter Plan of Treatment [...] documented as of this encounter Care Teams Aerial Gunner Relationship Specialty Start Date End Date Eboni Fuentes PA-C [facility] [place] [address] PCP - General Physician Spinner Hand 07/19/20 Lawrence Baker MD [facility] [place] [address] Pulmonary Disease 12/25/21 04/22/22 Dave Gongora MD [address] [id number] Surgery 12/25/21 documented as of this encounter
--- OUTSIDE RECORDS SUMMARY | 2025-03-02 09:55 | XMS_ITS | Encounter Summary ---
Author Organization [facility] Address [address] [place] [address] Care Team Providers Care Framing Mill Operator Name Role Phone Enidangelina Eboni MENDEL Primary Care Provider [phone] Lawrence Baker MD Unavailable Unavailable Dave Gongora MD Unavailable [phone] Encounter Details Date Type Department Care Team (Late st Contact Info) Description 05/05/2021 Transcribe Orders [facility] [address] [place] [address] Sara Hearn, VALUATION CONSULTANT [address] [place] [address] Exposure to COVID-19 virus (Primary Dx) Social History [...] on file documented as of this encounter Results * SARS-CoV-2, QL, PCR (Routine/Outpatient) (05/05/2021 7:01 PM EDT) SARS-CoV-2 RNA Undetected Undetected 05/06/2021 5:33 AM EDT [facility] Comment: Testing was performed using the [employer] Lil[employer] Direct. Fact sheets for this Emergency Use Authorization (EUA) assay can be found at the following links: For Healthcare Providers: https://www.fda.gov/media/696995/download For Patients: https://www.fda.gov/media/240268/download Test Performed by: [facility],[address] [place] [address], Golf Course Equipment Operator: Kobi Vázquez D.O.; CLIA#: [id number] Nares (Nares) 05/05/2021 7:0 1 PM EDT 05/06/2021 2:34 AM EDT Narrative [facility] - 05/06/2021 5:33 AM EDT Symptomatic?->No Indications (select all that apply)->Asymptomatic - community/general population Was specimen collected by a [facility] teamsite developer?->No Was this specimen self collected?->Yes NO KNOWN ALLERGIES us Sara Hearn VALUATION CONSULTANT MICROBIOLOGY - GENERAL ORDER MAYUR Final Result [facility] [address] [place] [address] [place] [address] documented in this encounter Visit Diagnoses Diagnosis Exposure to COVID-19 virus- Primary documented in this [...] documented as of this encounter Care Teams Framing Mill Operator Relationship Specialty Start Date End Date Eboni Fuentes PA-C [address] [place] [address] PCP - General Physician Transitional Living Specialist 07/19/20 Lawrence Baker MD [address] [place] [address] Pulmonary Disease 12/25/21 04/22/22 Dave Gongora MD [address] [place] [address] Surgery 12/25/21 documented as of this encounter
--- OUTSIDE RECORDS SUMMARY | 2025-03-02 09:55 | XMS_ITS | Encounter Summary ---
Author Organization [facility] Address [address] [id number] Care Team Providers Care Solid Waste Truck Driver Name Role Phone Eboni Fuentes PA-C Primary Care Provider [phone] Lawrence Baker MD Unavailable Unavailable Dave Gongora MD Unavailable [phone] Reason for Referral * Consultation (Routine) - Closed Specialty Diagnoses / Procedures Referred By Contac t Referred To Contact Urology Diagnoses Low testosterone in male Ginger Curtis MD [address] [place] [address] Phone: tel: fax: Kenny Mixon MD [address] [place] [address] Phone: tel: fax: Referral ID Status Reason Start Date Expiration Date Visits Re quested Visits Authorized [id number] Closed 10/21/2020 10/21/2021 1 1 Encounter Details Date Type Department Care Team (Late st Contact Info) Description 10/21/2020 Orders Only [facility] [address] [place] [address] Ginger Curtis MD [address] [place] [address] Low testosterone in male (Primary Dx) Social History Tobacco Use Types [...] PM EST documented as of this encounter Plan of Treatment Scheduled Referrals Name Type Priority Associated Diagnoses Orde r Schedule Ambulatory referral to Urology Outpatient Referral Routine Low testosterone in male Ordered: 10/21/2020 documented as of this encounter Visit Diagnoses Diagnosis Low testosterone in male- Primary documented in this encounter Additional Health [...] documented as of this encounter Care Teams Solid Waste Truck Driver Relationship Specialty Start Date End Date Eboni Fuentes PA-C [facility] [place] [address] PCP - General Physician Edi Architect 07/19/20 Lawrence Baker MD [facility] [place] [address] Pulmonary Disease 12/25/21 04/22/22 Dave Gongora MD [address], [place] [address] Surgery 12/25/21 documented as of this encounter
--- OUTSIDE RECORDS SUMMARY | 2025-03-02 09:55 | XMS_ITS | Encounter Summary ---
Author Organization [facility] Address [address] [place] [address] Care Team Providers Care Rigging Supervisor Name Role Phone Enidangelina Eboni MENDEL Primary Care Provider Lawrence Baker MD Unavailable Unavailable Dave Gongora MD Unavailable [phone] Encounter Details Date Type Department Care Team (Late st Contact Info) Description 01/09/2022 Telephone [facility] [address] [place] [address], [address] [place] [address] Dave Gongora MD [address] [place] [address] [address] [place] [id number] Social History Tobacco Use Types Packs/Day Years Used Date Smoking Tobacco: Every Day Cigarettes 1.5 25 Smokeless Tobacco: Current Comments:12/25/21 smokes 1 [...] was confirmed or suspected to have Coronavirus/COVID-19? Unable to assess 01/09/2022 4:16 PM EDT documented as of this encounter Miscellaneous Notes * Telephone Encounter - Elizabeth García - 01/09/2022 3:59 PM EDT Patient stopped in stating he'd just been to the ER, had surgery on the for hernia mesh repair. The umbilical area is swollen and red, patient is in a lot of pain and has new bulge on the ride side. Patient describes pain as a knife sticking in him. - Zee Pal Or [phone] documented in this encounter Plan of Treatment Not on file documented as of this encounter Visit Diagnoses Not on filedocumented in this encounter Additional Health Concerns Assessment Noted Time PHQ-9 Depression Total Score: 15 020 6:45 PM EDT documented as of this encounter Care Teams Rigging Supervisor Relationship Specialty Start Date End Date Eboni Fuentes PA-C [address] [place] [address] PCP - General Physician Sawmill Or Timber Yard Worker 07/19/20 Lawrence Baker MD [address] [place] [address] Pulmonary Disease 12/25/21 04/22/22 Dave Gongora MD [address] [address] Surgery 12/25/21 documented as of this encounter
--- OUTSIDE RECORDS SUMMARY | 2025-03-02 09:55 | XMS_ITS | Encounter Summary ---
Author Organization [facility] Address [address] [place] [address] Care Team Providers Care Tree Worker Name Role Phone Eboni Fuentes PA-C Primary Care Provider [phone] Dave Gongora MD Unavailable [phone] Reason for Visit * Reason Onset Date Comments Medications Refill 01/07/2023 Encounter Details Date Type Department Care Team (Late st Contact Info) Description 01/07/2023 Refill [facility] Care [address] [facility] [address] [place] [address] Eboni Fuentes PA-C [address] [id number] Gastroesophageal reflux disease without esophagitis Social History Tobacco Use Types Packs/Day Years [...] encounter Miscellaneous Notes * Telephone Encounter - Nona Warner - 01/07/2023 2:07 PM EDT ERROR documented in this encounter Plan of Treatment Not on file documented as of this encounter Visit Diagnoses Diagnosis Gastroesophageal reflux disease without esophagitis Esophageal reflux documented in this encounter Additional Health Concerns Assessment Noted Time PHQ-9 Depression Total Score: 15 020 6:45 PM EDT documented as of this encounter Care Teams Tree Worker Relationship Specialty Start Date End Date Eboni Fuentes PA-C [address] [place] [address] PCP - General Physician Table Games Shift Manager 07/19/20 Dave Gongora MD [address] [place] [address] Surgery 12/25/21 documented as of this encounter
--- OUTSIDE RECORDS SUMMARY | 2025-03-02 09:55 | XMS_ITS | Encounter Summary ---
Author Organization [facility] Address [address] [place] [address] Care Team Providers Care Rehanger Name Role Phone Eboni Fuentes PA-C Primary Care Provider [phone] Dave Gongora MD Unavailable [phone] Reason for Referral * Radiology Services (Routine) - Closed Specialty Diagnoses / Procedures Referred By Contsuzanne t Referred To Contact Central Scheduling Diagnoses Ventral hernia Procedures CT Abdomen & Pelvis-NO CONTRAST Dave Gongora MD [address] [place] [address] [place] [address] Phone: tel: fax: Centralized Scheduling 1 [place] [address] Phone: tel: Referral ID Status Reason Start Date Expiration Date Visits Re quested Visits Authorized [id number] Closed 05/23/2022 05/23/2023 1 1 Encounter Details Date Type Department Care Team (Late st Contact Info) Description 05/23/2022 Telephone [facility] [address] [place] [address], [address] [place] [id number] Dave Gongora MD [address] [place] [address] [place] [address] Social History Tobacco Use Types Packs/Day Years [...] suspected to have Coronavirus/COVID-19? No / Unsure 05/26/2022 9:05 PM EDT documented as of this encounter Plan of Treatment Scheduled Orders Name Type Priority Associated Diagnoses Orde r Schedule CT Abdomen & Pelvis-NO CONTRAST Imaging Routine Ventral hernia 1 Occurrences starting 05/23/2022 until 05/23/2023 documented as of this encounter Visit Diagnoses Diagnosis Ventral hernia- Primary documented in this encounter Additional Health Concerns Assessment Noted Time PHQ-9 Depression Total Score: 15 020 6:45 PM EDT documented as of this encounter Care Teams Rehanger Relationship Specialty Start Date End Date Eboni Fuentes PA-C [address] [place] [address] PCP - General Physician Bond Clerk 07/19/20 Dave Gongora MD [address] [place] [address] Surgery 12/25/21 documented as of this encounter
--- OUTSIDE RECORDS SUMMARY | 2025-03-02 09:55 | XMS_ITS | Encounter Summary ---
Author Organization [facility] Address [address] [place] [address] Care Team Providers Care Design Verification Engineer Name Role Phone Amelie Torres DO, Clarence Franklin Primary Care Pr ovider Eboni Fuentes PA-C Primary Care Provider [phone] Lawrence Baker MD Unavailable Unavailable Dave Gongora MD Unavailable [phone] Reason for Visit * Reason Onset Date Comments Medications Refill 06/09/2020 Encounter Details Date Type Department Care Team (Late st Contact Info) Description 06/09/2020 Refill [facility] [address] [place] [address] Eboni Fuentes PA-C [address] [place] [address] Social History Tobacco Use Types [...] documented as of this encounter Care Teams Design Verification Engineer Relationship Specialty Start Date End Date Hector Kinsey Jr., [address] [place] [address] PCP - General Family Medicine 09/21/19 07/18/20 Eboni Fuentes PA-C [address] [place] [address] PCP - General Physician Citrus Fruit Colorer 07/19/20 Lawrence Baker MD [address] [place] [address] Pulmonary Disease 12/25/21 04/22/22 Dave Gongora MD [address] [address] Surgery 12/25/21 documented as of this encounter
--- OUTSIDE RECORDS SUMMARY | 2025-03-02 09:55 | XMS_ITS | Patient Health Record ---
Author Organization [facility] Address [address] [place] [address] Care Team Providers Care Fire Alarm Inspector Name Role Phone KATY STARKS Primary Care Provider [phone] Reason For Referral No Information Medications Medication SIG (Take, Route, Fr equency, Duration) Notes Start Date End Date Status Mobic 7.5 mg 1 (one) tablet(s) or oral once a day for thirty 10/22/2013 Active Plan Of Treatment No Information Insurance Providers Payer Name Payer Address Payer Phone Subscriber Number Group Number Insured Name Patient Relationship to Insured Coverage Start Date Coverage End Date [facility] MEDICAID-R URAL [address] [address] [place] [address] [id number] Nilesh Mack Self - patient is the insured
--- OUTSIDE RECORDS SUMMARY | 2025-03-02 09:55 | XMS_ITS | Encounter Summary ---
Author Organization [facility] Address [address] [place] [address] Care Team Providers Care Personal Injury Law Specialist Name Role Phone Amelie Torres DO, Clarence Franklin Primary Care Pr ovider Eboni Fuentes PA-C Primary Care Provider [phone] Lawrence Baker MD Unavailable Unavailable Dave Gongora MD Unavailable [phone] Reason for Visit * Reason Onset Date Comments Medications Refill 06/23/2020 Encounter Details Date Type Department Care Team (Late st Contact Info) Description 06/23/2020 Refill [facility] [address] [place] [address] Eboni Fuentes PA-C [address] [place] [address] Social History Tobacco Use Types [...] documented as of this encounter Care Teams Personal Injury Law Specialist Relationship Specialty Start Date End Date Hector Kinsey Jr., DO [address] [place] [address] PCP - General Family Medicine 09/21/19 07/18/20 Eboni Fuentes PA-C [address] [place] [address] PCP - General Physician Manager Pacu 07/19/20 Lawrence Baker MD [address] [place] [address] Pulmonary Disease 12/25/21 04/22/22 Dave Gongora MD [address] [place] [address] Surgery 12/25/21 documented as of this encounter
--- OUTSIDE RECORDS SUMMARY | 2025-03-02 09:55 | XMS_ITS | Encounter Summary ---
Author Organization [facility] [place] [facility] Address [address] [place] [address] Care Team Providers Care Signalman Name Role Phone Eboni Fuentes PA-C Primary Care Provider [phone] Dave Gongora MD Unavailable [phone] Reason for Visit * Reason Onset Date Comments Preventative Care 02/11/2025 COLOGUARD Encounter Details Date Type Department Care Team (Late st Contact Info) Description 02/11/2025 Telephone Patient Access Center [address] [place] [address] Eboni Fuentes PA-C [address] [place] [address] Preventative Care (COLOGUARD) Social History Tobacco Use Types Packs/Day Years [...] encounter Miscellaneous Notes * Telephone Encounter - Jacinda Severino - 02/11/2025 1:54 PM EDT [facility] Patient outreach today to discuss a cologuard testing kit. Reminded patient to complete outstanding care gaps. documented in this encounter Plan of Treatment Not on file documented as of this encounter Visit Diagnoses Not on filedocumented in this encounter Additional Health Concerns Assessment Noted Time PHQ-9 Depression Total Score: 15 020 6:45 PM EDT documented as of this encounter Care Teams Signalman Relationship Specialty Start Date End Date Eboni Fuentes PA-C [address] [place] [address] PCP - General Physician Cytologist 07/19/20 Dave Gongora MD [address] [place] [address] Surgery 12/25/21 documented as of this encounter
[2025-03-03 06:10] LABS: Hepatitis B Surface Antigen Negative (Negative)
== END 2025-03-01 23:59 | disposition home or self-care (01) ==
LOC: LAB.DROPOF 03-02 09:53
PROVIDERS: PCP Nurse Practitioner Family; Visit Provider Nurse Practitioner Family
DX: E78.5 Hyperlipidemia, unspecified (principal); E11.9 Type 2 diabetes mellitus without complications; I10 Essential (primary) hypertension; Z12.5 Encounter for screening for malignant neoplasm of prostate; Z11.59 Encounter for screening for other viral diseases; Z11.4 Encounter for screening for human immunodeficiency virus [HIV]
CPT/HCPCS: 80053; 80061; 80074; 82306; 84436; 84443; 85025; 87340; 87389; G0103

== ENCOUNTER 2025-06-21 09:51 | Outpatient (CLI) | payer BC, SELFPAY ==
[2025-06-21 17:53] LABS: Hematocrit 52.0 % (42.0-52.0); Hemoglobin 17.3 g/dL (14.1-18.0); Immature Granulocytes % 0.4 %; Mean Corpuscular HGB Conc 33.3 g/dL (31.8-35.4); Mean Corpuscular Hemoglobin 30.8 pg (27.0-31.2); Mean Corpuscular Volume 92.7 fl (80-94); Nucleated Red Blood Cells % 0 %; Platelet Count 213 K/mm3 (142-424); Red Blood Count 5.61 M/mm3 (4.60-6.20); Red Cell Distribution Width-SD 44.3 fL; White Blood Count 13.4 K/mm3 (4.8-10.8)
[2025-06-21 19:29] LABS: 25-OH Vitamin D, Total 21.0 ng/mL (30-100)
[2025-06-22 03:19] LABS: Hemoglobin A1C 5.5 % (4.0-6.0)
--- OUTSIDE RECORDS SUMMARY | 2025-06-22 11:30 | XMS_ITS | Encounter Summary ---
Author Organization [facility] Address [address] [place] [address] Care Team Providers Care Brine Tank Tender Name Role Phone Eboni Fuentes PA-C Primary Care Provider [phone] Dave Gongora MD Unavailable [phone] Reason for Referral * Radiology Services (Routine) - Closed Specialty Diagnoses / Procedures Referred By Contsuzanne t Referred To Contact Central Scheduling Diagnoses Ventral hernia Procedures CT Abdomen & Pelvis-NO CONTRAST Dave Gongora MD [address] [place] [address] [place] [address] Phone: tel: fax: Centralized Scheduling 1 [place] [address] Phone: tel: Referral ID Status Reason Start Date Expiration Date Visits Re quested Visits Authorized [id number] Closed 05/23/2022 05/23/2023 1 1 Encounter Details Date Type Department Care Team (Late st Contact Info) Description 05/23/2022 Telephone [facility] [address] [place] [address], [address] [place] [phone] Dave Gongora MD [address] [place] [address] [place] [address] Social History Tobacco Use Types Packs/Day Years [...] PM EDT documented as of this encounter Functional Status * Risk Assessment Question Answer Date of Assessment Author Any specific learning needs? No 05/24/2022 3 :11 PM HEIDET Kel Domínguez RN Any specific nutritional needs? No 3:11 PM HEIDET Kel Domínguez RN Any significant weight loss? 0 05/24/2022 3 :11 PM EDT Kel Domínguez RN * Infection Control Question Answer Date of Assessment Author Persistent cough? 0 05/24/2022 3:11 PM Kel Kaur RN Any bloody sputum? 0 05/24/2022 3:11 PM Kel Kaur RN Any night sweats? 0 05/24/2022 3:11 PM Kel Kaur RN Positive TB skin test? 0 05/24/2022 3:11 PM Kel Kaur RN Travel outside [place] in last month? 0 05/24/20 3:11 PM Kel Kaur RN Infection Control Score 0 05/24/2022 3:11 P M Kel Kaur RN * Immunizations Question Answer Date of Assessment Author Last Tetanus >5 Yrs 05/24/2022 3:11 PM Kel Rodas RN Immunization UTD? Yes 05/24/2022 3:11 PM Kel Kaur RN * Adult Pain Scale Question Answer Date of Assessment Author Pain Intervention Emotional Support 05/24/2022 3:13 PM Kel Kaur RN Pain Intensity 1 7 05/24/2022 3:13 PM EDT Kel Cifuentes RN Pain Location Abdomen 05/24/2022 3:13 PM EDT Kel Mendes RN Pain Orientation Right 05/24/2022 3:13 PM EDT Kel Cifuentes RN Pain Description Aching 05/24/2022 3:13 PM EDT Kel Cifuentes RN Patient's Stated Pain Goal 0 05/24/2022 3:1 3 PM EDT Kel Domínguez RN * VITALS Question Answer Date of Assessment Author Temp 98.1 05/24/2022 3:13 PM EDT Kel Bueno RN BP Manual or Automatic? Automatic 05/24/2022 3:13 P M EDT Kel Domínguez RN Patient Position Sitting 05/24/2022 3:13 PM EDT Kel Cifuentes RN * Abuse, Neglect, and Exploitation for Vice President Of Academic Affairs Question Answer Date of Assessment Author Home Needs No 05/24/2022 3:11 PM EDT Kel Bueno RN Abuse, neglect, exploitation Not Suspected 05/24/2022 3:11 PM EDT Kel Domínguez RN Are you in a relationship wi th a person who physically hurts or threatens you? No 05/24/2022 3:11 PM EDT Kel Domínguez RN * Meds to Beds Question Answer Date of Assessment Author Does patient want to utilize [facility] [place] [place] service? No 05/24/2022 3:13 PM EDT Kel Domínguez RN * Vitals Reassessment Question Answer Date of Assessment Author Automatic Restart Vitals Timer Yes 05/24/2022 4:15 PM EDT Claudette Santillan RN * In Pain? Answer Date of Assessment Author Yes 05/24/2022 3:13 PM EDT Celio Domínguez RN * Hemodynamic Monitoring? Answer Date of Assessment Author No 05/24/2022 3:13 PM EDT Celio Domínguez RN * Oxygen Therapy Question Answer Date of Assessment Author O2 Delivery Room air 05/24/2022 3:13 PM EDT Kel Bueno RN * Monahan Fall Risk Score Question Answer Date of Assessment Author Fall Level? 0-24 Low Risk - Green 05/24/2022 3:14 PM EDT Kel Domínguez RN History of Falling, Immediate or Within 6 Months 0 05/24/2022 3:14 PM EDT Kel Domínguez RN Secondary Diagnosis 0 05/24/2022 3:14 PM ED T Kel Domínguez RN Ambulatory Aid 0 05/24/2022 3:14 PM EDT Kel Qureshi RN IV or IV Access 0 05/24/2022 3:14 PM EDT Kel Upton RN Gait/Transferring 0 05/24/2022 3:14 PM EDT Kel Domínguez RN Mental Status 0 05/24/2022 3:14 PM EDT Kel Mendes RN Monahan Fall Risk Score 0 05/24/2022 3:14 PM EDT Kel Domínguez RN * BSA (Calculated - sq m) Answer Date of Assessment Author 2.44 05/24/2022 3:13 PM EDT Celio Domínguez RN * BMI (Calculated) Answer Date of Assessment Author 38 05/24/2022 3:13 PM EDT Celio Domínguez RN * Height and Weight Question Answer Date of Assessment Author Height 70 05/24/2022 3:13 PM EDT Kel Bueno RN Weight 4240 05/24/2022 3:13 PM EDT Kel Bueno RN Height Method Stated 05/24/2022 3:13 PM EDT Kel Mendes RN Weight Method Standing Scale 05/24/2022 3:13 PM EDT Kel Upton RN * Question Answer Date of Assessment Author BP 115/67 05/24/2022 7:45 PM EDT Claudette Santillan RN Pulse 78 05/24/2022 7:45 PM EDT Claudette Santillan RN Resp 22 05/24/2022 4:15 PM EDT Claudette Santillan RN SpO2 98 05/24/2022 7:45 PM EDT Claudette Santillan RN MAP Cuff(mmHg) 79 05/24/2022 7:45 PM EDT Claudette Carter RN Heart Rate (Monitor) 81 05/24/2022 4:30 PM E Claudette Pastor RN * Fall Risk Interventions Question Answer Date of Assessment Author Fall Prevention Interventions Call light within reach;Bed in lowest position 05/24/2022 3:45 PM EDT Meena Garnica RN Fall risk armband color applied? Green 05/24/2022 3:45 PM EDT Meena Garnica R N Arm Bands On ID;Fall 05/24/2022 3:45 PM EDT Meena Garnica RN * Departure Condition Question Answer Date of Assessment Author Departure Condition Stable 05/24/2022 7:57 PM ED T Claudette Santillan RN Mobility at Departure Ambulatory 05/24/2022 7:57 PM EDT Claudette Santillan RN Patient Teaching Simple Discharge Instructions Reviewed;Follow-up Care Reviewed 05/24/2022 7:57 PM Claudette Azevedo RN Departure Mode With family 05/24/2022 7:57 PM EDT Claudette Carter RN Patient Destination Home 05/24/2022 7:57 PM ED Claudette Schulz RN * Self-Administered Insulin Pump Question Answer Date of Assessment Author Patient has a Self Administe red Insulin Pump? No 05/24/2022 3:11 PM EDT Kel Domínguez RN * Adult Pain Scale Question Answer Date of Assessment Author Pain Intervention Emotional Support 05/24/2022 3:13 PM EDT Kel Domínguez RN Pain Intensity 1 7 05/24/2022 3:13 PM EDT Kel Cifuentes RN Pain Location Abdomen 05/24/2022 3:13 PM EDT Kel Mendes RN Pain Orientation Right 05/24/2022 3:13 PM EDT Kel Cifuentes RN Pain Description Aching 05/24/2022 3:13 PM EDT Kel Cifuentes RN Patient's Stated Pain Goal 0 05/24/2022 3:1 3 PM EDT Kel Domínguez RN * Question Answer Date of Assessment Author SpO2 98 05/24/2022 7:45 PM EDT Claudette Santillan RN * Fall Risk Interventions Question Answer Date of Assessment Author Fall Prevention Interventions Call light within reach;Bed in lowest position 05/24/2022 3:45 PM EDT Meena Garnica RN Fall risk armband color applied? Green 05/24/2022 3:45 PM EDT Meena Garnica R N Arm Bands On ID;Fall 05/24/2022 3:45 PM EDT Meena Garnica ODALIS documented as of this encounter Mental Status * Question Answer Entry Date Author Pain Intensity 1 7 05/24/2022 3:13 PM EDT Kel Cifuentes, ODALIS * Question Answer Entry Date Author Temp 98.1 05/24/2022 3:13 PM EDT Kel Bueno, ODALIS * Oxygen Therapy Question Answer Entry Date Author O2 Delivery Room air 05/24/2022 3:13 PM EDT Kel Bueno, ODALIS * Question Answer Entry Date Author BP 115/67 05/24/2022 7:45 PM EDT Claudette Santillan RN Pulse 78 05/24/2022 7:45 PM EDT Claudette Santillan RN Resp 22 05/24/2022 4:15 PM EDT Claudette Santillan RN SpO2 98 05/24/2022 7:45 PM EDT Claudette Santlilan RN documented in this encounter Plan of Treatment Scheduled Orders [...] documented as of this encounter Care Teams Brine Tank Tender Relationship Specialty Start Date End Date Eboni Fuentes PA-C [address] [place] [address] PCP - General Physician Promotion Writer 07/19/20 Dave Gongora MD [address] [place] [address] Surgery 12/25/21 documented as of this encounter
--- OUTSIDE RECORDS SUMMARY | 2025-06-22 11:30 | XMS_ITS | Encounter Summary ---
Author Organization [facility] Address [address] [place] [address] Care Team Providers Care Can Top Setter Name Role Phone Eboni Fuentes PA-C Primary Care Provider [phone] Dave Gongora MD Unavailable [phone] Reason for Visit * Reason Onset Date Comments Medications Refill 01/07/2023 Encounter Details Date Type Department Care Team (Late st Contact Info) Description 01/07/2023 Refill [facility] [address] [facility] [address] [place] [address] Eboni Fuentes PA-C [address] [place] [id number] Gastroesophageal reflux disease without esophagitis Social History [...] documented as of this encounter Care Teams Can Top Setter Relationship Specialty Start Date End Date Eboni Fuentes PA-C [address] [place] [address] PCP - General Physician Campus Security Director 07/19/20 Dave Gongora MD [address] [place] [address] Surgery 12/25/21 documented as of this encounter
--- OUTSIDE RECORDS SUMMARY | 2025-06-22 11:30 | XMS_ITS | Encounter Summary ---
Author Organization [facility] Address [address] [place] [address] Care Team Providers Care Chemical Instrumentation Officer Name Role Phone Eboni Fuentes PA-C Primary Care Provider [phone] Dave Gongora MD Unavailable [phone] Reason for Visit * Reason Onset Date Comments Other 05/25/2022 information Encounter Details Date Type Department Care Team (Late st Contact Info) Description 05/25/2022 Telephone [facility] [address] [place] [address] Eboni Fuentes PA-C [address] [place] [address] Other (information) Social History Tobacco [...] AM EDT documented as of this encounter Functional Status * Encounter Vitals Question Answer Date of Assessment Author Height 70 05/28/2022 9:17 AM EDT Johanna Diamond LPN Weight 4240 05/28/2022 9:17 AM EDT Gwill iams Johanna, SALAD COUNTER ATTENDANT * BSA (Calculated - sq m) Answer Date of Assessment Author 2.44 05/28/2022 9:17 AM EDT Trenton Atkinst SALAD COUNTER ATTENDANT * BMI (Calculated) Answer Date of Assessment Author 38 05/28/2022 9:17 AM EDT Trenton Atkinst, SALAD COUNTER ATTENDANT documented as of this encounter Miscellaneous Notes * Telephone Encounter - Oli Levy - 05/25/2022 6:03 PM EDT pts called in stating he doesn't need workmans comp papers he just needs a note stating he wasinjured at work on the and 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 The was the [...] documented as of this encounter Care Teams Chemical Instrumentation Officer Relationship Specialty Start Date End Date Eboni Fuentes PA-C [address] [place] [address] PCP - General Physician Wire Chief 07/19/20 Dave Gongora MD [address] [place] [address] Surgery 12/25/21 documented as of this encounter
--- OUTSIDE RECORDS SUMMARY | 2025-06-22 11:30 | XMS_ITS | Encounter Summary ---
Author Organization [facility] Address [address] [place] [address] Care Team Providers Care Roller Presser Operator Name Role Phone Eboni Fuentes PA-C Primary Care Provider [phone] Dave Gongora MD Unavailable [phone] Reason for Visit * Reason Onset Date Comments Preventative Care 06/21/2025 Encounter Details Date Type Department Care Team (Late st Contact Info) Description 06/21/2025 Telephone Patient Access Center [address] [place] [address] Eboni Fuentes PA-C [address] [place] [address] Preventative Care Social History Tobacco Use Types Packs/Day Years [...] encounter Miscellaneous Notes * Telephone Encounter - Keon Pedraza - 06/21/2025 2:25 PM EDT [facility] Patient outreach today to discuss a new cologuard testing kit. No answer/busy. documented in this encounter Plan of Treatment Not on file documented as of this encounter Visit Diagnoses Not on filedocumented in this encounter Additional Health Concerns Assessment Noted Time PHQ-9 Depression Total Score: 15 020 6:45 PM EDT documented as of this encounter Care Teams Roller Presser Operator Relationship Specialty Start Date End Date Eboni Fuentes PA-C [address] [place] [address] PCP - General Physician Zyglo Inspector 07/19/20 Dave Gongora MD [address] [place] [address] Surgery 12/25/21 documented as of this encounter
--- OUTSIDE RECORDS SUMMARY | 2025-06-22 11:30 | XMS_ITS | Encounter Summary ---
Author Organization [facility] Address [address] [place] [address] Care Team Providers Care Air Route Traffic Controller Name Role Phone Alfredo Eboni MENDEL Primary Care Provider [phone] Lawrence Baker MD Unavailable Unavailable Dave Gongora MD Unavailable [phone] Reason for Visit * Reason Onset Date Comments Other 11/30/2021 Wanting to get s cheduled Encounter Details Date Type Department Care Team (Late st Contact Info) Description 11/30/2021 Telephone [facility] [address] [place] [address], [address] [place] [address] Evans Gamino MD [address] [place] [address] [address] [place] [address] Other (Wanting to get scheduled) Social History [...] wanting to the PT scheduled back with Eavns Gamino. Would like a call back to [...] documented as of this encounter Care Teams Air Route Traffic Controller Relationship Specialty Start Date End Date Eboni Fuentes PA-C [address] [place] [address] PCP - General Physician Client Business Manager 07/19/20 Lawrence Baker MD [address] [place] [address] Pulmonary Disease 12/25/21 04/22/22 Dave Gongora MD [address] [address] Surgery 12/25/21 documented as of this encounter
--- OUTSIDE RECORDS SUMMARY | 2025-06-22 11:30 | XMS_ITS | Patient Health Record ---
Author Organization [facility] Address [address] [place] [address] Care Team Providers Care Script Supervisor Name Role Phone KATY STARKS Primary Care Provider [phone] Reason For Referral No Information Medications Medication SIG (Take, Route, Fr equency, Duration) Notes Start Date End Date Status Mobic 7.5 mg 1 (one) tablet(s) or oral once a day; Duration: thirty 10/22/2013 Active Plan Of Treatment No Information Insurance Providers Payer Name Payer Address Payer Phone Subscriber Number Group Number Insured Name Patient Relationship to Insured Coverage Start Date Coverage End Date [facility] MEDICAID-R UR[place] [address] [address] [place] [address] [id number] Nilesh Mack Self - patient is the insured
--- OUTSIDE RECORDS SUMMARY | 2025-06-22 11:31 | XMS_ITS | Encounter Summary ---
Author Organization [facility] Address [address] [place] [id number] Care Team Providers Care Sql Programmer Analyst Name Role Phone Alfredo Eboni MENDEL Primary Care Provider Lawrence Baker MD Unavailable Unavailable Dave Gongora MD Unavailable [phone] Reason for Visit * Reason Onset Date Comments Medication - Prior Authorization 02/10/2021 Encounter Details Date Type Department Care Team (Late st Contact Info) Description 02/10/2021 Telephone [facility] [address] [place], [place] [phone] Kenny Mixon MD [address] [place] [address] Medication - Prior Authorization Social History Tobacco [...] Vitals Question Answer Date of Assessment Author BP 124/78 02/10/2021 10:29 AM EDT Melody Gretchen celaya Pulse 85 02/10/2021 10:29 AM EDT Melody celayaGretchen Height 69 02/10/2021 10:29 AM EDT Melody celaya Gretchen Weight 4224 02/10/2021 10:29 AM EDT Melody celaya Gretchen * BSA (Calculated - sq m) Answer Date of Assessment Author 2.41 02/10/2021 10:29 AM EDT Gretchen Morataya * BMI (Calculated) Answer Date of Assessment Author 39 02/10/2021 10:29 AM EDT Gretchen Morataya documented as of this encounter Mental Status * Question Answer Entry Date Author BP 124/78 02/10/2021 10:29 AM EDT Gretchen Coker Pulse 85 02/10/2021 10:29 AM EDT Gretchen Coker documented in this encounter Miscellaneous Notes * Telephone Encounter [...] Resolved Time Covid-19 (rule out) 06/16/2021 06/16/2021 10/22/20 21 4:31 PM EDT Covid-19 (rule out) 08/14/2021 12/30/2021 08/28/19 22 10:12 PM EST Covid-19 (rule out) 12/30/2021 12/30/2021 01/01/20 22 5:52 AM EDT Assessment Noted Time PHQ-9 Depression Total Score: 15 020 6:45 PM EDT documented as of this encounter Care Teams Sql Programmer Analyst Relationship Specialty Start Date End Date Eboni Fuentes PA-C [address] [place] [address] PCP - General Physician Mechanical Technologist 07/19/20 Lawrence Baker MD [address] [place] [address] Pulmonary Disease 12/25/21 04/22/22 Dave Gongora MD [address] [address] Surgery 12/25/21 documented as of this encounter
--- OUTSIDE RECORDS SUMMARY | 2025-06-22 11:31 | XMS_ITS | Encounter Summary ---
Author Organization [facility] Address [address] [id number] Care Team Providers Care Information Strategist Name Role Phone Eboni Fuentes PA-C Primary Care Provider [phone] Lawrence Baker MD Unavailable Unavailable Dave Gongora MD Unavailable Reason for Referral * Consultation (Routine) - Closed Specialty Diagnoses / Procedures Referred By Contac t Referred To Contact Urology Diagnoses Low testosterone in male Ginger Curtis MD [address] [place] [address] Phone: tel: fax: Kenny Mixon MD [address] [place] [address] Phone: tel: fax: Referral ID Status Reason Start Date Expiration Date Visits Re quested Visits Authorized [id number] Closed 10/21/2020 10/21/2021 1 1 Encounter Details Date Type Department Care Team (Late st Contact Info) Description 10/21/2020 Orders Only [facility] [address] [place] [address] Ginger Curtis MD [address] [place] [address] Low testosterone in male (Primary Dx) Social [...] PM EST documented as of this encounter Functional Status documented as of this encounter Plan of [...] documented as of this encounter Care Teams Information Strategist Relationship Specialty Start Date End Date Eboni Fuentes PA-C [address] [address] PCP - General Physician Tooling Manager 07/19/20 Lawrence Baker MD [address] [address] Pulmonary Disease 12/25/21 04/22/22 Dave Gongora MD [address] [place] [address] Surgery 12/25/21 documented as of this encounter
--- OUTSIDE RECORDS SUMMARY | 2025-06-22 11:31 | XMS_ITS | Encounter Summary ---
Author Organization [facility] Address [address] [place] [address] Care Team Providers Care Gift Wrapper Name Role Phone Eboni Fuentes PA-C Primary Care Provider [phone] Dave Gongora MD Unavailable [phone] Reason for Visit * Reason Onset Date Comments Other 05/10/2023 pioglitazone (AC TOS) 30 mg tablet Encounter Details Date Type Department Care Team (Late st Contact Info) Description 05/10/2023 Telephone [facility] [place] [address] Eboni Fuentes PA-C [address] [place] [address] Other (pioglitazone (ACTOS) 30 mg tablet) [...] - 05/13/2023 10:25 AM EDT Nilesh Mack ([place]: [id number]) - [id number] Pioglitazone HCl 30MG tablets Status: PA Response - Approved Created: April 26, 2023 Sent: May 13, 2023 * Telephone Encounter - Leia Hayward - 05/10/2023 11:54 AM EDT Patient needs PA on pioglitazone (ACTOS) 30 mg tablet Patient has [employer] Insurance . Patient recently started a new job with new [employer] [place] insurance. The insurance is updated and verified in his chart. documented in this encounter Plan of Treatment Not on file documented as of this encounter Visit Diagnoses Not on filedocumented in this encounter Additional Health Concerns Assessment Noted Time PHQ-9 Depression Total Score: 15 020 6:45 PM EDT documented as of this encounter Care Teams Gift Wrapper Relationship Specialty Start Date End Date Eboni Fuentes PA-C [address] [place] [address] PCP - General Physician Railroad Police 07/19/20 Dave Gongora MD [address] [place] [address] Surgery 12/25/21 documented as of this encounter
--- OUTSIDE RECORDS SUMMARY | 2025-06-22 11:31 | XMS_ITS | Encounter Summary ---
Author Organization [facility] Address [address] [place] [address] Care Team Providers Care Director Of Research And Development Name Role Phone Eboni Fuentes PA-C Primary Care Provider [phone] Lawrence Baker MD Unavailable Unavailable Dave Gongora MD Unavailable [phone] Reason for Visit * Reason Onset Date Comments Other 01/25/2021 Encounter Details Date Type Department Care Team (Late st Contact Info) Description 01/25/2021 Telephone [facility] [address] [place] [address] Eboni Fuentes PA-C [address] [place] [address] Other Social History Tobacco Use Types Packs/Day [...] documented as of this encounter Care Teams Director Of Research And Development Relationship Specialty Start Date End Date Eboni Fuentes PA-C [address] [place] [address] PCP - General Physician Commercial Plumber 07/19/20 Lawrence Baker MD [address] [place] [address] Pulmonary Disease 12/25/21 04/22/22 Dave Gongora MD [address] [place] [address] Surgery 12/25/21 documented as of this encounter
--- OUTSIDE RECORDS SUMMARY | 2025-06-22 11:31 | XMS_ITS | Encounter Summary ---
Author Organization [facility] Address [address] [id number] Care Team Providers Care Java Flex Developer Name Role Phone Amelie Torres DO, Clarence Franklin Primary Care Pr ovider Eboni Fuentes PA-C Primary Care Provider [phone] Lawrence Baker MD Unavailable Unavailable Dave Gongora MD Unavailable [phone] Reason for Visit * Reason Onset Date Comments Results 06/16/2020 Covid Encounter Details Date Type Department Care Team (Late st Contact Info) Description 06/16/2020 Telephone Patient Access Center [address] [place] [address] Harjit Rivera RN Results (Covid) Social History [...] documented as of this encounter Care Teams Java Flex Developer Relationship Specialty Start Date End Date Hector Kinsey Jr., DO [address] [place] [address] PCP - General Family Medicine 09/21/19 07/18/20 Eboni Fuentes PA-C [address] [place] [address] PCP - General Physician Piping Drafter 07/19/20 Lawrence Baker MD [address] [place] [address] Pulmonary Disease 12/25/21 04/22/22 Dave Gongora MD [address] [address] Surgery 12/25/21 documented as of this encounter
--- OUTSIDE RECORDS SUMMARY | 2025-06-22 11:31 | XMS_ITS | Encounter Summary ---
Author Organization [facility] Address [address] [place] [address] Care Team Providers Care Swing Tender Name Role Phone Enidangelina Eboni MENDEL Primary Care Provider [phone] Lawrence Baker MD Unavailable Unavailable Dave Gongora MD Unavailable [phone] Encounter Details Date Type Department Care Team (Late st Contact Info) Description 05/06/2021 Orders Only [facility] [address] [place] [address] Sara Hearn, PRIMER WATERPROOFING MACHINE ADJUSTER [address] [place] [address] Cough with exposure to COVID-19 virus (Primary [...] documented as of this encounter Care Teams Swing Tender Relationship Specialty Start Date End Date Eboni Fuentes PA-C [address] [place] [address] PCP - General Physician Body Welder 07/19/20 Lawrence Baker MD [address] [place] [address] Pulmonary Disease 12/25/21 04/22/22 Dave Gongora MD [address] [address] Surgery 12/25/21 documented as of this encounter
--- OUTSIDE RECORDS SUMMARY | 2025-06-22 11:31 | XMS_ITS | Clinical Summary ---
Author Organization [facility] Address [address] [place] [address] Care Team Providers Care High School Hvac R Instructor Name Role Phone Eboni Fuentes PA-C Primary Care Provider [phone] Dave Gongora MD Unavailable [phone] Allergies No known active allergies Medications BUPRENORPHINE [...] TIMES DAILY NEEDED FOR NAUSEA 90 Tablet 5 12/10/19 24 Active Active Problems Problem Noted Date Diagnosed Date Adrenal abnormality/ LT adrenal nodularity . 09/2021 Abdominal pain, generalized 12/18/2021 Incarcerated incisional hernia 12/18/2021 Uncontrolled type 2 diabetes mellitus with hyper glycemia 09/26/2020 Essential hypertension 09/26/2020 Mixed hyperlipidemia 09/26/2020 Epidermoid cyst 07/22/2019 Overview (07/22/2019): Added automatically from request for surgery [id number] Encounters Date Type Department Care Team Description 06/21/2025 Telephone Patient Access Center [address] [place] [address] Eboni Fuentes PA-C Preventative Care 04/14/2025 Telephone Patient Access Center [address] [place] [address] Eboni Fuentes PA-C Preventative Care from Last 3 Months Family History Medical [...] this topic Medical Devices Implanted Type Area Service Establishment Attendant Device Identifier Shelf Expiration Date Model / Serial / Lot Mesh Ventralight W/Positioner 4.5 [place] Implanted:Qty: 1 on 01/02/2022 by Dave Gongora MD at [facility] N/A: Abdomen BARD PATIENT CARE 07/23/2023 [id number] / / [id number] Optifix Absorbable Fixation Sy Implanted:Qty: 1 on 01/02/2022 by Dave Gongora MD at [facility] N/A: Abdomen C R BARD 06/22/2023 [id number] / / [id number] Procedures Procedure Name Priority Date/Time Associated Diagnosis Comments COLOGUARD Routine 11/10/2021 4:35 PM EDT Screening for colorectal cancer MICROALBUMIN,RANDOM URINE (INCLUDES CREATININE W/RATIO) Routine 11/01/2021 11:35 AM EST Type 2 diab w hyprosm w/o nonket hyprgly-hypros coma ([facility]) from Last 3 Months or Most Recently Relevant to Health Maintenance Results * Cologuard (11/10/2021 4:35 PM EDT) Cologuard Negative Negative 11/15/2021 5:43 PM EDT [facility] (CLIA #:[id number]) Comment: NEGATIVE TEST RESULT. A negative Cologuard [...] Elena Cespedes al, N Engl J Med 2014;370(14):8138-2877) The normal value (reference range) for this assay is negative. COLOGUARD RE-SCREENING RECOMMENDATION: Periodic colorectal cancer screening is an important part of preventive healthcare for asymptomatic individuals at average risk for colorectal cancer. Following a negative Cologuard result, the [place] Cancer Society and U.S. Multi-Society Task Force screening guidelines recommend a Cologuard re-screening interval of 3 years. References: [place] [employer] Society Guideline for Colorectal Cancer Screening: https://www.cancer.org/cancer/rpsvr-lgahgj-lwmggv/ublqciitv-mgkjikaqr-cbrldam/ac s-rec ommendations.html.; Zechariah DK, Alexandra WEST, Pablo PickensK, Colorectal Cancer Screening: Recommendations for Physicians and Patients from the U.S. Multi-Society Task Force on Colorectal Cancer Screening , Am J Gastroenterology 2017; 112:8413-5806. TEST DESCRIPTION: Composite algorithmic analysis of stool [...] Elena Cespedes al, N Engl J Med 2014;370(14):3800-0127.) Cologuard may produce a false negative or false positive result (no colorectal cancer or precancerous polyp present at colonoscopy follow up). A negative Cologuard test result does not guarantee the absence of CRC or advanced adenoma (pre-cancer). The current Cologuard screening interval is every 3 years. ([place] Cancer Society and U.S. Multi-Society Task Force). Cologuard performance data in a 10,000 patient pivotal study using colonoscopy as the reference method can be accessed at the following location: www.[employer]/results. Additional description of the Cologuard test process, warnings and precautions can be found at www.cologRecycling Angelrd.com. Stool 11/10/2021 4:35 PM EDT 11/13/2021 2:16 PM EDT Elsa Martinez APRN LAB SEND OUT ORDERABLES Final Re sult [facility] (CLIA #:[id number]) [address] [phone] * Microalbumin, Random Urine (11/01/2021 11:35 AM EST) CREATININE URINE 100.0 mg/dL 11/02/19 4:[address] [facility] MICROALBUMIN,U,RANDO M 1.40 0.00 - 1.80 mg/dL 11/01/2021 4:12 PM EST [facility] MICROAL[facility] CREAT RATIO 14.0 ug/mg 04/2022 4:12 PM EST [facility] Comment: CATEGORY SPOT COLLECTION Normal <30 ug/mg creatinine Microalbuminuria 30-300 ug/mg creatinine Clinical albuminuria >300 ug/mg creatinine 11/01/2021 11:3 5 AM EST 11/01/2021 3:44 PM EST Narrative [facility] - 11/01/2021 4:12 PM EST NO KNOWN ALLERGIES us Elsa Martinez IT WEB DEVELOPMENT CONSULTANT CHEMISTRY ORDERABLES Final Resul t [facility] [address] [place] [address] [facility] [address] [facility] [place] [address] from Last 3 Months or Most Recently Relevant to Health Maintenance Insurance [facility] Advance Directives * Full Code (Latest Code Status on File) Date Activated Date Inactivated Comments 01/02/2022 7:33 AM 01/02/2022 3:14 PM Care Teams High School Hvac R Instructor Relationship Specialty Start Date End Date Eboni Fuentes PA-C [address] [place] [address] PCP - General Physician Tongue Binder 07/19/20 Dave Gongora MD [address] [address] [place] [address] Surgery 12/25/21
--- OUTSIDE RECORDS SUMMARY | 2025-06-22 11:31 | XMS_ITS | Encounter Summary ---
Author Organization [facility] Address [address] [place] [address] Care Team Providers Care Toll Testboard Worker Name Role Phone Enidangelina Eboni MENDEL Primary Care Provider Lawrence Baker MD Unavailable Unavailable Dave Gongora MD Unavailable [phone] Encounter Details Date Type Department Care Team (Late st Contact Info) Description 05/05/2021 Transcribe Orders [facility] [address] [place] [address] Sara Hearn, LUMBER HANDLER [address] [place] [address] Exposure to COVID-19 virus (Primary Dx) Social [...] RNA Undetected Undetected 05/06/2021 5:33 AM EDT [facility] Comment: Testing was performed using the [employer] Lil[employer] Direct. Fact sheets for this Emergency Use Authorization (EUA) assay can be found at the following links: For Healthcare Providers: https://www.fda.gov/media/864951/download For Patients: https://www.fda.gov/media/361644/download Test Performed by: [facility],[address] [place] [address], Hyster Machine Operator: Kobi Vázquez D.O.; CLIA#: [id number] Nares (Nares) 05/05/2021 7:0 1 PM EDT 05/06/2021 2:34 AM EDT Narrative [facility] - 05/06/2021 5:33 AM EDT Symptomatic?->No Indications (select all that apply)->Asymptomatic - community/general population Was specimen collected by a [facility] paper steamer?->No Was this specimen self collected?->Yes NO KNOWN ALLERGIES us Sara Hearn LUMBER HANDLER MICROBIOLOGY - GENERAL ORDER MAYUR Final Result [facility] [address] [place] [address] [place] [address] documented in this encounter Visit Diagnoses Diagnosis [...] documented as of this encounter Care Teams Toll Testboard Worker Relationship Specialty Start Date End Date Eboni Fuentes PA-C [address] [place] [address] PCP - General Physician Circus Agent 07/19/20 Lawrence Baker MD [address] [place] [address] Pulmonary Disease 12/25/21 04/22/22 Dave Gongora MD [address] [place] [address] Surgery 12/25/21 documented as of this encounter
--- OUTSIDE RECORDS SUMMARY | 2025-06-22 11:31 | XMS_ITS | Encounter Summary ---
Author Organization [facility] Address [address] [place] [address] Care Team Providers Care Tube Builder Airplane Name Role Phone Amelie Torres DO, Clarence Franklin Primary Care Pr ovider Eboni Fuentes PA-C Primary Care Provider [phone] Lawrence Baker MD Unavailable Unavailable Dave Gongora MD Unavailable [phone] Reason for Visit * Reason Onset Date Comments Medications Refill 06/09/2020 Encounter Details Date Type Department Care Team (Late st Contact Info) Description 06/09/2020 Refill [facility] [address] [place] [address] Eboni Fuentes PA-C [address] [place] [address] Social History Tobacco Use Types [...] as of this encounter Care Teams Tube Builder Airplane Relationship Specialty Start Date End Date Hector Kinsey Jr., [address] [place] [address] PCP - General Family Medicine 09/21/19 07/18/20 Eboni Fuentes PA-C [address] [place] [address] PCP - General Physician Outreach Worker 07/19/20 Lawrence Baker MD [address] [place] [address] Pulmonary Disease 12/25/21 04/22/22 Dave Gongora MD [address] [address] Surgery 12/25/21 documented as of this encounter
--- OUTSIDE RECORDS SUMMARY | 2025-06-22 11:31 | XMS_ITS | Encounter Summary ---
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 Please advise [phone]. Call in to Oscar Ro. documented in [...] documented as of this encounter Care Teams Financial Aid Advisor Relationship Specialty Start Date End Date Eboni Fuentes PA-C [address] [place] [address] PCP - General Physician Loan Originator 07/19/20 Lawrence Baker MD [address] [place] [address] Pulmonary Disease 12/25/21 04/22/22 Dave Gongora MD [address], [place] [address] Surgery 12/25/21 documented as of this encounter
--- OUTSIDE RECORDS SUMMARY | 2025-06-22 11:31 | XMS_ITS | Encounter Summary ---
Author Organization [facility] Address [address] [place] [address] Care Team Providers Care Tube Pusher Name Role Phone Amelie Torres DO, Clarence Franklin Primary Care Pr ovider Eboni Fuentes PA-C Primary Care Provider [phone] Lawrence Baker MD Unavailable Unavailable Dave Gongora MD Unavailable [phone] Reason for Visit * Reason Onset Date Comments Medications Refill 06/09/2020 Encounter Details Date Type Department Care Team (Late st Contact Info) Description 06/09/2020 Refill [facility] [address] [place] [place] [address] Eboni Fuentes PA-C [address] [place] [address] Social History Tobacco Use Types [...] as of this encounter Care Teams Tube Pusher Relationship Specialty Start Date End Date Hector Kinsey Jr., [address] [place] [address] PCP - General Family Medicine 09/21/19 07/18/20 Eboni Fuentes PA-C [address] [place] [address] PCP - General Physician Keg Raiser 07/19/20 Lawrence Baker MD [address] [place] [address] Pulmonary Disease 12/25/21 04/22/22 Dave Gongora MD [address] [address] Surgery 12/25/21 documented as of this encounter
--- OUTSIDE RECORDS SUMMARY | 2025-06-22 11:31 | XMS_ITS | Encounter Summary ---
Author Organization [facility] Address [address] [place] [address] Care Team Providers Care Special Effects Makeup Artist Name Role Phone Amelie Torres DO, Clarence Franklin Primary Care Pr ovider Eboni Fuentes PA-C Primary Care Provider [phone] Lawrence Baker MD Unavailable Unavailable Dave Gongora MD Unavailable [phone] Reason for Visit * Reason Onset Date Comments Medications Refill 06/23/2020 Encounter Details Date Type Department Care Team (Late st Contact Info) Description 06/23/2020 Refill [facility] [address] [place] [address] Eboni Fuentes PA-C [address] [place] [address] Social History Tobacco Use Types [...] documented as of this encounter Care Teams Special Effects Makeup Artist Relationship Specialty Start Date End Date Hector Kinsey Jr., DO [address] [place] [address] PCP - General Family Medicine 09/21/19 07/18/20 Eboni uFentes PA-C [address] [place] [address] PCP - General Physician Air Export Agent 07/19/20 Lawrence Baker MD [address] [place] [address] Pulmonary Disease 12/25/21 04/22/22 Dave Gongora MD [address] [place] [address] Surgery 12/25/21 documented as of this encounter
--- OUTSIDE RECORDS SUMMARY | 2025-06-22 11:31 | XMS_ITS | Encounter Summary ---
Author Organization [facility] Address [address] [place] [address] Care Team Providers Care Manager Special Events Name Role Phone Eboni Fuentes PA-C Primary Care Provider [phone] Lawrence Baker MD Unavailable Unavailable Dave Gongora MD Unavailable [phone] Encounter Details Date Type Department Care Team (Late st Contact Info) Description 07/27/2020 Telephone [facility] [address] [place] [address] Eboni Fuentes PA-C [address] [place] [address] Social History Tobacco Use Types [...] his arteries are'. You can call back [phone] or [phone]. documented in this encounter Plan of Treatment [...] documented as of this encounter Care Teams Manager Special Events Relationship Specialty Start Date End Date Eboni Fuentes PA-C [address] [place] [address] PCP - General Physician Rn Advanced 07/19/20 Lawrence Baker MD [address] [place] [address] Pulmonary Disease 12/25/21 04/22/22 Dave Gongora MD [address] [place] [address] Surgery 12/25/21 documented as of this encounter
--- OUTSIDE RECORDS SUMMARY | 2025-06-22 11:31 | XMS_ITS | Encounter Summary ---
Author Organization [facility] Address [address] [place] [address] Care Team Providers Care Demurrage Clerk Name Role Phone Eboni Fuentes PA-C Primary Care Provider [phone] Lawrence Baker MD Unavailable Unavailable Dave Gongora MD Unavailable [phone] Encounter Details Date Type Department Care Team (Late st Contact Info) Description 01/24/2021 Telephone [facility] [address] [place] [address] Eboni Fuentes PA-C [address] [place] [address] Social History Tobacco Use Types [...] encounter Miscellaneous Notes * Telephone Encounter - Jonathon Pascual - 01/24/2021 2:13 PM EDT Patient's called and stated [facility] will be faxing a form for DOT physical. She asked if it can be filled out and faxed back [phone] attjuliana Anderson. She stated it is very [...] documented as of this encounter Care Teams Demurrage Clerk Relationship Specialty Start Date End Date Eboni Fuentes PA-C [address] [place] [address] PCP - General Physician Otr Flatbed Company Truck Driver 07/19/20 Lawrence Baker MD [address] [place] [address] Pulmonary Disease 12/25/21 04/22/22 Dave Gongora MD [address] [address] Surgery 12/25/21 documented as of this encounter
--- OUTSIDE RECORDS SUMMARY | 2025-06-22 11:31 | XMS_ITS | Encounter Summary ---
Author Organization [facility] Address [address] [place] [address] Care Team Providers Care Dental Chairside Assistant Name Role Phone Enidangelina Eboni MENDEL Primary Care Provider [phone] Lawrence Baker MD Unavailable Unavailable Dave Gongora MD Unavailable [phone] Encounter Details Date Type Department Care Team (Late st Contact Info) Description 01/09/2022 Telephone [facility] [address] [place] [address], [address] [place] [address] Dave Gongora MD [address] [place] [address] [address] [place] [id number] Social History Tobacco Use Types Packs/Day Years [...] Question Answer Date of Assessment Author BP 130/79 01/10/2022 8:58 AM EDT Stewa rtAlma RN Temp 98.2 01/10/2022 8:58 AM EDT Stewa rt, Alma, RN Temp src Temporal 01/10/2022 8:58 AM EDT Stewa rtAlma, RN Pulse 99 01/10/2022 8:58 AM EDT Stewa rt, Alma, RN Resp 16 01/10/2022 8:58 AM EDT Stewa rt, Alma, RN SpO2 96 01/10/2022 8:58 AM EDT Stewa rt, ODALIS Marquez Height 70 01/10/2022 8:58 AM EDT Stewa rtAlma RN Weight 4294.4 01/10/2022 8:58 AM EDT Stewa rtAlma RN Pain Score 5 01/10/2022 8:58 AM EDT Stewa rtAlma RN * Risk Assessment Question Answer Date of Assessment Author Any specific learning needs? No 01/09/2022 2 :23 PM EDT Zee López RN Any specific nutritional needs? No 2:23 PM EDT Zee López RN Any significant weight loss? 0 01/09/2022 2 :23 PM EDT Zee López RN * Infection Control Question Answer Date of Assessment Author Infection Control Score 0 01/09/2022 2:23 P M EDT Zee López RN * BP Location Answer Date of Assessment Author Left Upper Extremity 01/10/2022 8:58 AM EDT Alma Davenport RN * Adult Pain Scale Question Answer Date of Assessment Author Pain Intensity 1 7 01/09/2022 2:24 PM EDT Zee Farrell RN * VITALS Question Answer Date of Assessment Author BP Manual or Automatic? Automatic 01/09/2022 2:24 P M EDT Zee López RN BP Location Right Arm 01/09/2022 2:24 PM EDT Zee Whitney RN * Abuse, Neglect, and Exploitation for Orthopaedic Surgeon Question Answer Date of Assessment Author Home Needs No 01/09/2022 2:23 PM EDT Zee Whitney RN Abuse, neglect, exploitation Not Suspected 01/09/2022 2:23 PM EDT Zee López RN Are you in a relationship wi th a person who physically hurts or threatens you? No 01/09/2022 2:23 PM EDT Zee López RN * Medications Taking Question Answer Date of Assessment Author How well does the patient understand the information about the medications being taking? Understands all of the information about their medications 01/10/2022 9:00 AM EDT Alma Merino RN * Wound Screening and Assessment Question Answer Date of Assessment Author Patients from Nursing Homes or Other Health Care Facilities: Are wounds present upon full skin inspection? No 01/09/2022 2:23 PM EDT Zee Kelley RN * Meds to Beds Question Answer Date of Assessment Author Does patient want [place] [facility] [place]? No 01/09/2022 2:23 PM EDT Zee López RN * Vitals Reassessment Question Answer Date of Assessment Author Automatic Restart Vitals Timer Yes 01/10/2022 8:58 AM EDT Alma Merino RN * In Pain? Answer Date of Assessment Author Yes 01/09/2022 2:24 PM EDT Patricia López RN * Oxygen Therapy Question Answer Date of Assessment Author O2 Delivery Room air 01/09/2022 2:24 PM EDT Zee Whitney RN * Hero Fall Risk Score Question Answer Date of Assessment Author Fall Level? 0-24 Low Risk - Green 01/09/2022 2:24 PM EDT Zee López RN History of Falling, Immediate or Within 6 Months 0 01/09/2022 2:24 PM EDT Zee López RN Secondary Diagnosis 0 01/09/2022 2:24 PM ED T Zee López RN Ambulatory Aid 0 01/09/2022 2:24 PM EDT Zee Fabian RN IV or IV Access 0 01/09/2022 2:24 PM EDT Zee Kelley RN Gait/Transferring 0 01/09/2022 2:24 PM EDT Zee López RN Mental Status 0 01/09/2022 2:24 PM EDZee Florian RN Morse Fall Risk Score 0 01/09/2022 2:24 PM EDT Zee López RN * Patient Position Answer Date of Assessment Author Sitting 01/10/2022 8:58 AM EDT Alma Merino RN * BSA (Calculated - sq m) Answer Date of Assessment Author 2.45 01/10/2022 8:58 AM EDT Alma Merino, ODALIS * BMI (Calculated) Answer Date of Assessment Author 38.5 01/10/2022 8:58 AM EDT Alma Merino RN * Fall Risk Interventions Question Answer Date of Assessment Author Fall Prevention Interventions Remind patient to call for assistance 01/09/2022 2:29 PM EDT Zee López RN Fall risk armband color applied? Green 01/09/2022 2:29 PM EDT Zee López RN Arm Bands On ID;Fall 01/09/2022 2:29 PM EDT Zee López, ODALIS * Contact Information Question Answer Date of Assessment Author Reason for Contact Physician Request 01/10/2022 8:06 A M Stella Joshua RN Physician Requesting Contact Priya 01/10/2022 8:06 AM Stella Joshua RN Physician Reason for Contact wanted to go over results and make sure patient followed up in [facility] ( surgeon's office) today between 8a-noon. 01/10/2022 8:06 AM Stella Joshua RN * Contact Attempts Question Answer Date of Assessment Author Call Back Attempts Made First Call 01/10/2022 8:06 A M Stella Joshua RN Call Back Attempts Completed Completed 01/10/2022 8 :06 AM Stella Joshua RN * Follow Up Status Comments Answer Date of Assessment Author pt was on his way to [facility] for follow up appointment at 830 am. 01/10/2022 8:06 AM Stella Joshua RN * Question Answer Date of Assessment Author SpO2 96 01/10/2022 8:58 AM EDT Alma Burns RN * Adult Pain Scale Question Answer Date of Assessment Author Pain Intensity 1 7 01/09/2022 2:24 PM EDT Zee Farrell RN * Fall Risk Interventions Question Answer Date of Assessment Author Fall Prevention Interventions Remind patient to call for assistance 01/09/2022 2:29 PM EDT Zee López RN Fall risk armband color applied? Green 01/09/2022 2:29 PM EDT Zee López RN Arm Bands On ID;Fall 01/09/2022 2:29 PM EDT Zee López RN documented as of this encounter Mental Status * Question Answer Entry Date Author BP 130/79 01/10/2022 8:58 AM EDT Fiorella rtAlma RN Temp 98.2 01/10/2022 8:58 AM EDT Fiorella rtAlma RN Temp src Temporal 01/10/2022 8:58 AM EDT Alma Burns RN Pulse 99 01/10/2022 8:58 AM EDT Alma Burns RN Resp 16 01/10/2022 8:58 AM EDT Alma Burns RN SpO2 96 01/10/2022 8:58 AM EDT Alma Burns RN * Question Answer Entry Date Author Pain Intensity 1 7 01/09/2022 2:24 PM EDT Zee Farrell RN * Oxygen Therapy Question Answer Entry Date Author O2 Delivery Room air 01/09/2022 2:24 PM EDT Zee Whitney RN documented in this encounter Miscellaneous Notes * [...] sticking in him. - Zee Pal Or [phone] documented in this encounter Plan of Treatment Not on file documented as of this encounter Visit Diagnoses Not on filedocumented in this encounter Additional Health Concerns Assessment Noted Time PHQ-9 Depression Total Score: 15 020 6:45 PM EDT documented as of this encounter Care Teams Dental Chairside Assistant Relationship Specialty Start Date End Date Eboni Fuentes PA-C [address] [place] [address] PCP - General Physician Senior Chemical Engineer 07/19/20 Lawrence Baker MD [address] [place] [address] Pulmonary Disease 12/25/21 04/22/22 Dave Gongora MD [address] [address] Surgery 12/25/21 documented as of this encounter
--- OUTSIDE RECORDS SUMMARY | 2025-06-22 11:31 | XMS_ITS | Encounter Summary ---
Author Organization [facility] Address [address] [place] [id number] Care Team Providers Care Construction Safety Consultant Name Role Phone EnidEboni alfaro MENDEL Primary Care Provider [phone] Lawrence Baker MD Unavailable Unavailable Dave Gongora MD Unavailable [phone] Reason for Visit * Reason Onset Date Comments Request Referral 10/21/2020 Oral Encounter Details Date Type Department Care Team (Late st Contact Info) Description 10/21/2020 Telephone [facility] [address] [place] [address] Ginger Curtis MD [address] [place] [address] Request Referral (Oral) Social History Tobacco Use [...] Functional Status documented as of this encounter Miscellaneous Notes [...] documented as of this encounter Care Teams Construction Safety Consultant Relationship Specialty Start Date End Date Eboni Fuentes PA-C [address] [employer] [place] [address] PCP - General Physician Public Relations Officer 07/19/20 Lawrence Baker MD [address] [place] [address] Pulmonary Disease 12/25/21 04/22/22 Dave Gongora MD [address] [place] [address] Surgery 12/25/21 documented as of this encounter
--- OUTSIDE RECORDS SUMMARY | 2025-06-22 11:31 | XMS_ITS | Encounter Summary ---
Author Organization [facility] Address [address] [place] [address] Care Team Providers Care Farm Contractor Buyer Name Role Phone Amelie Torres DO, Clarence Franklin Primary Care Pr ovider Eboni Fuentes PA-C Primary Care Provider [phone] Lawrence Baker MD Unavailable Unavailable Dave Gongora MD Unavailable [phone] Reason for Visit * Reason Onset Date Comments Results - Test 06/12/2019 Encounter Details Date Type Department Care Team (Late st Contact Info) Description 06/12/2019 Telephone [facility] [address] [place] [address] Doctor, [place], [place] Results - Test Social History Tobacco [...] documented as of this encounter Care Teams Farm Contractor Buyer Relationship Specialty Start Date End Date Hector Kinsey Jr., DO [address] [place] [address] PCP - General Family Medicine 09/21/19 07/18/20 Eboni Fuentes PA-C [address] [place] [address] PCP - General Physician Fashion Merchandiser 07/19/20 Lawrence Baker MD [address] [place] [address] Pulmonary Disease 12/25/21 04/22/22 Dave Gongora MD [address] [address] Surgery 12/25/21 documented as of this encounter
--- OUTSIDE RECORDS SUMMARY | 2025-06-22 11:31 | XMS_ITS | Encounter Summary ---
Author Organization [facility] Address [address] [place] [address] Care Team Providers Care Engineering Technical Analyst Name Role Phone Enidangelina Eboni MENDEL Primary Care Provider Lawrence Baker MD Unavailable Unavailable Dave Gongora MD Unavailable [phone] Encounter Details Date Type Department Care Team (Late st Contact Info) Description 05/06/2021 Orders Only [facility] [address] [place] [address] Sara Hearn, WILDLIFE CONSERVATIONIST [address] [place] [address] Cough with exposure to COVID-19 virus (Primary [...] documented as of this encounter Care Teams Engineering Technical Analyst Relationship Specialty Start Date End Date Eboni Fuentes PA-C [address] [place] [address] PCP - General Physician Point Of Care Technician 07/19/20 Lawrence Baker MD [address] [place] [address] Pulmonary Disease 12/25/21 04/22/22 Dave Gongora MD [address] [address] Surgery 12/25/21 documented as of this encounter
== END 2025-06-21 23:59 ==
LOC: LAB.DROPOF 06-22 11:25
PROVIDERS: PCP Nurse Practitioner Family; Visit Provider Nurse Practitioner Family
DX: E55.9 Vitamin D deficiency, unspecified (principal); E11.9 Type 2 diabetes mellitus without complications; D72.829 Elevated white blood cell count, unspecified
CPT/HCPCS: 82306; 83036; 85025